=== PATIENT | female | born 1975 | race Caucasian/White ===

== ENCOUNTER → 2016-07-12 | Outpatient (CLI) | payer OTHER ==
[~2016-07-12] MED LIST: GASTROGRAFIN SOLUTION 30ML (Q9963) As Ordered ONE; ISOVUE-370 76% 100ML VIAL (Q9967) As Ordered ONE
--- NOTE | 2016-07-12 17:42 | REP ---
CT abdomen and pelvis 07/12/2016 Indication: Unspecified abdominal pain Comparison: CT of the abdomen and pelvis 06/29/2016 Technique: After drinking two cups of oral contrast each containing 10 mL Gastrografin in 290 mL water, 100 mL Isovue 370 mg/mL was injected intravenously, and 3 mm continuous spiral axial sections were obtained through the abdomen and pelvis Findings: Lung bases are clear bilaterally. Small amount of focal fatty infiltration is seen within the medial segment left lobe of liver adjacent to the falciform ligament. Spleen, pancreas are normal. There has been a prior cholecystectomy; common bile duct is within normal limits given prior cholecystectomy status. The adrenal glands are normal. Kidneys are without hydronephrosis bilaterally or obstructing ureteral calculi. Abdominal aorta is of normal course and caliber. Postsurgical changes are seen within the left upper quadrant consistent with prior gastric bypass procedure. There is no visualized extraluminal contrast or free intraperitoneal air. Bladder is normal. The uterus may contain a small amount of fluid within the endometrial cavity. There is a 3 cm minimally complex left ovarian cyst of density 25 HU. Cyst is decreased in size from prior study when it measured 4.7 cm in diameter and had the appearance of a hemorrhagic cyst. There are a few scattered colonic diverticula. There is no free air or ascites. Impression: 1. There has been interval decrease in size of minimally complex left ovarian cyst, now 3 cm diameter, previously 4.7 cm diameter and hemorrhagic 2. No acute intra-abdominal or pelvic pathology 3. Previous gastric bypass surgery. No free intraperitoneal air or extraluminal air/contrast Signed by Nelly Edge MD 07/15/2016 08:44 P
== END ==
LOC: M RAD 12:19
PROVIDERS: ATTEND Surgery
DX: R10.9 Unspecified abdominal pain (principal); N83.202 Unspecified ovarian cyst, left side; Z98.84 Bariatric surgery status
CPT/HCPCS: 74177; Q9963; Q9967

== ENCOUNTER → 2016-07-19 | Outpatient (CLI) | payer OTHER ==
--- NOTE | 2016-07-19 18:32 | REP ---
Clinical: Follow-up left ovarian cyst . Technique: Transabdominal pelvic ultrasound followed by transvaginal examination for better evaluation of the endometrium and adnexa with color Doppler evaluation of the ovaries. Findings: Bladder is unremarkable and measures approximately 6.9 x 4.6 x 6.4 cm . Heterogeneous anteverted uterus measures 7.7 x 4.1 x 3.9 cm . The endometrial complex measures 10.9 mm thickness. No discrete uterine or endometrial abnormalities are appreciated. The patient is noted to be status post right oophorectomy. Left ovary demonstrates normal vascularity without torsion and measures 3.7 x 3.8 x 2.5 cm with 2.0 cm hemorrhagic cyst decreased in size from prior examination. No pelvic fluid or adnexal mass lesion. . Impression: 1. Hemorrhagic cyst in the left ovary decreased in size compared to prior examination. 2. No pelvic fluid or further acute process. Signed by John Harvey MD 07/19/2016 06:24 P
== END ==
LOC: M RAD 16:43
PROVIDERS: ATTEND Nurse Practitioner Women's Health
DX: D39.12 Neoplasm of uncertain behavior of left ovary (principal); N83.202 Unspecified ovarian cyst, left side

== ENCOUNTER → 2016-07-23 | Outpatient (CLI) | payer OTHER ==
--- NOTE | 2016-07-23 14:12 | REPMRS ---
Patient History The patient states she had a clinical breast exam in July 2016.Family history of unknown cancer in paternal aunt at age 40. Digital Mammo Screening Bilat: July 23, 2016 - Exam #: [id number] Bilateral CC and MLO view(s) were taken. Technologist: Cristal Ortiz, Technologist Prior study comparison: February 25, 2015, bilateral digital mammo screening bilat performed at [facility]. FINDINGS: There are scattered fibroglandular densities. There has been no change in the appearance of the mammogram from the prior studies. There is a mild amount of scattered fibroglandular density which is fairly symmetric. There is no interval development of dominant mass, architectural distortion, or clustered microcalcification suggestive of malignancy. ASSESSMENT: BI-RADS/ACR category 1 mammogram. Negative. Recommendation Routine screening mammogram in 1 year (for women over age 40). This mammogram was interpreted with the aid of an FDA-approved computer-aided dectection system. Electronically Signed By: Harpreet Reyes MD 07/23/16 [id number]
== END ==
LOC: M RAD 12:18
PROVIDERS: ATTEND Nurse Practitioner Women's Health
DX: Z12.31 Encounter for screening mammogram for malignant neoplasm of breast (principal)

== ENCOUNTER → 2016-11-20 | Outpatient (REF) | payer OTHER ==
[2016-11-20 22:35] LABS: CALCIUM OXALATE CRYSTALS MODERATE
== END ==
LOC: M LAB REF 09:17
PROVIDERS: ATTEND Physician Assistant Medical
DX: N39.0 Urinary tract infection, site not specified (principal)

== ENCOUNTER → 2017-02-01 | Outpatient (CLI) | payer OTHER ==
[2017-02-01 09:26] LABS: BASO % 0.7 % (0.0-1.0); EOS # 0.1 K/mm3 (0.0-0.50); EOS % 1.8 % (0.0-3.0); LYMPH # 0.9 K/mm3 (1.5-4.5); LYMPH % 23.8 % (24.0-44.0); MEAN CORPUSCULAR HEMOGLOBIN 31.8 pg (27.0-33.0); MEAN CORPUSCULAR HGB CONC 33.5 g/dl (32.0-36.5); MEAN CORPUSCULAR VOLUME 94.7 fl (80.0-96.0); MONO # 0.3 K/mm3 (0.0-0.8); NEUTROPHILS # 2.4 K/mm3 (1.8-7.7); NEUTROPHILS % 61.5 % (36.0-66.0); RED CELL DISTRIBUTION WIDTH 12.8 % (11.5-14.5); WHITE BLOOD COUNT 3.9 K/mm3 (4.0-10.0)
[2017-02-01 10:14] LABS: ALBUMIN 3.6 GM/DL (3.2-5.2); ALKALINE PHOSPHATASE 78 U/L (45-117); ALT/SGPT 19 U/L (12-78); ANION GAP 11 MEQ/L (8-16); AST/SGOT 13 U/L (15-37); BILIRUBIN,TOTAL 0.5 MG/DL (0.2-1.0); BLOOD UREA NITROGEN 10 MG/DL (7-18); CALCIUM LEVEL 8.5 MG/DL (8.5-10.1); CARBON DIOXIDE LEVEL 25 MEQ/L (21-32); CHLORIDE LEVEL 105 MEQ/L (98-107); CHOLESTEROL LEVEL 121 MG/DL (<200); CREATININE FOR GFR 0.56 MG/DL (0.55-1.02); FREE T4 1.08 NG/DL (0.76-1.46); GLOMERULAR FILTRATION RATE > 60.0 (>58); GLUCOSE, FASTING 88 MG/DL (70-105); POTASSIUM SERUM 3.7 MEQ/L (3.5-5.1); SODIUM LEVEL 141 MEQ/L (136-145); TOTAL PROTEIN 6.6 GM/DL (6.4-8.2); TRIGLYCERIDES LEVEL 64 MG/DL (<150)
== END ==
LOC: M LAB 08:44
PROVIDERS: ATTEND Nurse Practitioner Adult Health
DX: Z98.84 Bariatric surgery status (principal)

== ENCOUNTER → 2017-03-06 | Outpatient (REF) | payer OTHER ==
[2017-03-06 22:20] LABS: CALCIUM OXALATE CRYSTALS LARGE
== END ==
LOC: M LAB REF 19:00
PROVIDERS: ATTEND Physician Assistant Medical
DX: N39.0 Urinary tract infection, site not specified (principal)

== ENCOUNTER → 2017-06-21 | Outpatient (CLI) | payer OTHER ==
[2017-06-21 08:01] LABS: MEAN CORPUSCULAR HEMOGLOBIN 30.6 pg (27.0-33.0); MEAN CORPUSCULAR HGB CONC 32.3 g/dl (32.0-36.5); MEAN CORPUSCULAR VOLUME 94.7 fl (80.0-96.0); PLATELET COUNT, AUTOMATED 287 10^3/uL (150-450); RED CELL DISTRIBUTION WIDTH 12.6 % (11.5-14.5); WHITE BLOOD COUNT 5.1 10^3/uL (4.0-10.0)
[2017-06-21 08:36] LABS: ALBUMIN 3.9 GM/DL (3.2-5.2); ALBUMIN/GLOBULIN RATIO 1.22 (1.00-1.93); ALKALINE PHOSPHATASE 82 U/L (45-117); ALT/SGPT 21 U/L (12-78); ANION GAP 7 MEQ/L (8-16); AST/SGOT 15 U/L (7-37); BILIRUBIN,TOTAL 0.4 MG/DL (0.2-1.0); BLOOD UREA NITROGEN 8 MG/DL (7-18); CALCIUM LEVEL 8.7 MG/DL (8.5-10.1); CARBON DIOXIDE LEVEL 29 MEQ/L (21-32); CHLORIDE LEVEL 107 MEQ/L (98-107); CREATININE FOR GFR 0.62 MG/DL (0.55-1.02); FERRITIN 29 NG/ML (8-252); FREE T4 1.06 NG/DL (0.76-1.46); GLOMERULAR FILTRATION RATE > 60.0 (>58); GLUCOSE, FASTING 75 MG/DL (70-105); PERCENT SATURATION 30.3 % (13.2-45.0); POTASSIUM SERUM 4.4 MEQ/L (3.5-5.1); SODIUM LEVEL 143 MEQ/L (136-145); TOTAL IRON BINDING CAPACITY 254 UG/DL (250-450); TOTAL PROTEIN 7.1 GM/DL (6.4-8.2)
[2017-06-21 11:25] LABS: VITAMIN B12 LEVEL 1339 PG/ML (247-911)
== END ==
LOC: M LAB 06:06
PROVIDERS: ATTEND Registered Nurse
DX: E03.9 Hypothyroidism, unspecified (principal); K91.2 Postsurgical malabsorption, not elsewhere classified

== ENCOUNTER → 2017-06-21 | Outpatient (CLI) | payer OTHER ==
[2017-06-21 08:01] LABS: BASO # 0.1 10^3/uL (0.0-0.2); EOS # 0.1 10^3/uL (0.0-0.50); EOS % 1.4 % (0.0-3.0); IMMATURE GRANULOCYTE % 0.4 % (0-0); LYMPH # 1.1 10^3/uL (1.5-4.5); LYMPH % 21.6 % (24.0-44.0); MEAN CORPUSCULAR HEMOGLOBIN 31.6 pg (27.0-33.0); MEAN CORPUSCULAR HGB CONC 33.2 g/dl (32.0-36.5); MEAN CORPUSCULAR VOLUME 95.2 fl (80.0-96.0); MONO # 0.4 10^3/uL (0.0-0.8); MONO % 8.3 % (0.0-5.0); NEUTROPHILS # 3.3 10^3/uL (1.8-7.7); NEUTROPHILS % 67.3 % (36.0-66.0); PLATELET COUNT, AUTOMATED 277 10^3/uL (150-450); RED CELL DISTRIBUTION WIDTH 12.6 % (11.5-14.5)
[2017-06-21 08:38] LABS: ALBUMIN 3.7 GM/DL (3.2-5.2); ALBUMIN/GLOBULIN RATIO 1.12 (1.00-1.93); ALKALINE PHOSPHATASE 80 U/L (45-117); ALT/SGPT 19 U/L (12-78); ANION GAP 7 MEQ/L (8-16); AST/SGOT 17 U/L (7-37); BILIRUBIN,TOTAL 0.4 MG/DL (0.2-1.0); BLOOD UREA NITROGEN 8 MG/DL (7-18); CALCIUM LEVEL 8.4 MG/DL (8.5-10.1); CARBON DIOXIDE LEVEL 28 MEQ/L (21-32); CHLORIDE LEVEL 107 MEQ/L (98-107); CHOLESTEROL LEVEL 133 MG/DL (<200); CREATININE FOR GFR 0.64 MG/DL (0.55-1.02); FREE T4 1.07 NG/DL (0.76-1.46); GLOMERULAR FILTRATION RATE > 60.0 (>58); GLUCOSE, FASTING 77 MG/DL (70-105); POTASSIUM SERUM 4.5 MEQ/L (3.5-5.1); SODIUM LEVEL 142 MEQ/L (136-145); TRIGLYCERIDES LEVEL 45 MG/DL (<150)
== END ==
LOC: M LAB 06:11
PROVIDERS: ATTEND Nurse Practitioner Adult Health
DX: E55.9 Vitamin D deficiency, unspecified (principal); E03.9 Hypothyroidism, unspecified; Z98.84 Bariatric surgery status; Z79.899 Other long term (current) drug therapy

== ENCOUNTER → 2018-01-17 | Outpatient (CLI) | payer OTHER ==
[2018-01-17 08:10] LABS: BASO % 0.7 % (0.0-1.0); EOS # 0.1 10^3/uL (0.0-0.50); EOS % 1.6 % (0.0-3.0); HEMATOCRIT 42.4 % (36.0-47.0); HEMOGLOBIN 14.1 g/dl (12.0-15.5); IMMATURE GRANULOCYTE % 0.2 % (0-3.0); LYMPH # 1.4 10^3/uL (1.5-4.5); LYMPH % 25.1 % (24.0-44.0); MEAN CORPUSCULAR HGB CONC 33.3 g/dl (32.0-36.5); MEAN CORPUSCULAR VOLUME 96.4 fl (80.0-96.0); MONO # 0.5 10^3/uL (0.0-0.8); MONO % 9.2 % (0.0-5.0); NEUTROPHILS # 3.6 10^3/uL (1.8-7.7); NEUTROPHILS % 63.2 % (36.0-66.0); PLATELET COUNT, AUTOMATED 237 10^3/uL (150-450); RED CELL DISTRIBUTION WIDTH 12.4 % (11.5-14.5); WHITE BLOOD COUNT 5.7 10^3/uL (4.0-10.0)
[2018-01-17 08:28] LABS: ESTIMATED AVERAGE GLUCOSE 105 MG/DL (60-110); HEMOGLOBIN A1c 5.3 %
[2018-01-17 08:58] LABS: ALBUMIN 3.5 GM/DL (3.2-5.2); ALBUMIN/GLOBULIN RATIO 1.09 (1.00-1.93); ALKALINE PHOSPHATASE 69 U/L (45-117); ALT/SGPT 23 U/L (12-78); ANION GAP 7 MEQ/L (8-16); AST/SGOT 14 U/L (7-37); BILIRUBIN,TOTAL 0.6 MG/DL (0.2-1.0); BLOOD UREA NITROGEN 13 MG/DL (7-18); CALCIUM LEVEL 8.1 MG/DL (8.5-10.1); CARBON DIOXIDE LEVEL 28 MEQ/L (21-32); CHLORIDE LEVEL 110 MEQ/L (98-107); CHOLESTEROL LEVEL 133 MG/DL (<200); CHOLESTEROL RISK RATIO 1.821 (<5); CREATININE FOR GFR 0.65 MG/DL (0.55-1.30); FREE T4 0.98 NG/DL (0.76-1.46); GLOMERULAR FILTRATION RATE > 60.0 (>58); GLUCOSE, FASTING 90 MG/DL (70-100); HDL CHOLESTEROL 73 MG/DL (>40); NON-HDL-C 60 MG/DL; POTASSIUM SERUM 4.2 MEQ/L (3.5-5.1); SODIUM LEVEL 145 MEQ/L (136-145); TOTAL PROTEIN 6.7 GM/DL (6.4-8.2); TRIGLYCERIDES LEVEL 45 MG/DL (<150)
[2018-01-17 09:08] LABS: TOTAL 25(OH) VITAMIN D 44.5 NG/ML (30.0-100.0)
== END ==
LOC: M LAB 07:30
DX: E55.9 Vitamin D deficiency, unspecified (principal); Z79.899 Other long term (current) drug therapy; E03.9 Hypothyroidism, unspecified
CPT/HCPCS: 84443

== ENCOUNTER → 2018-10-28 | Outpatient (REF) | payer OTHER | LOC: M LAB REF 18:23 | PROVIDERS: ATTEND Nurse Practitioner Adult Health | DX: M54.5 Low back pain (principal); R19.7 Diarrhea, unspecified ==

== ENCOUNTER → 2018-11-02 | Outpatient (CLI) | payer OTHER ==
[2018-11-02 08:37] LABS: BASO # 0.1 10^3/uL (0.0-0.2); BASO % 0.9 % (0.0-1.0); EOS # 0.1 10^3/uL (0.0-0.50); EOS % 1.1 % (0.0-3.0); HEMATOCRIT 41.5 % (36.0-47.0); HEMOGLOBIN 13.9 g/dl (12.0-15.5); LYMPH # 1.4 10^3/uL (1.5-4.5); LYMPH % 24.3 % (24.0-44.0); MEAN CORPUSCULAR HGB CONC 33.5 g/dl (32.0-36.5); MEAN CORPUSCULAR VOLUME 95.4 fl (80.0-96.0); MONO # 0.5 10^3/uL (0.0-0.8); MONO % 8.3 % (0.0-5.0); NEUTROPHILS # 3.7 10^3/uL (1.8-7.7); PLATELET COUNT, AUTOMATED 248 10^3/uL (150-450); RED BLOOD COUNT 4.35 10^6/uL (4.00-5.40); WHITE BLOOD COUNT 5.7 10^3/uL (4.0-10.0)
[2018-11-02 08:53] LABS: HEMOGLOBIN A1c 5.2 %
[2018-11-02 09:06] LABS: ALT/SGPT 23 U/L (12-78); BILIRUBIN,TOTAL 0.5 MG/DL (0.2-1.0); BLOOD UREA NITROGEN 13 MG/DL (7-18); CALCIUM LEVEL 8.6 MG/DL (8.5-10.1); CARBON DIOXIDE LEVEL 26 MEQ/L (21-32); CHLORIDE LEVEL 108 MEQ/L (98-107); CHOLESTEROL LEVEL 141 MG/DL (<200); CHOLESTEROL RISK RATIO 2.169 (<5); CREATININE FOR GFR 0.66 MG/DL (0.55-1.30); FREE T4 1.01 NG/DL (0.76-1.46); GLOMERULAR FILTRATION RATE > 60.0 (>58); GLUCOSE, FASTING 86 MG/DL (70-100); HDL CHOLESTEROL 65 MG/DL (>40); LDL CHOLESTEROL 61 MG/DL (<100); NON-HDL-C 76 MG/DL; SODIUM LEVEL 141 MEQ/L (136-145); TOTAL PROTEIN 6.9 GM/DL (6.4-8.2); TRIGLYCERIDES LEVEL 74 MG/DL (<150)
[2018-11-03 09:45] LABS: VITAMIN B12 LEVEL 1327 PG/ML (247-911)
== END ==
LOC: M LAB 07:54
PROVIDERS: ATTEND Nurse Practitioner Adult Health
DX: Z51.81 Encounter for therapeutic drug level monitoring (principal); Z79.899 Other long term (current) drug therapy; E03.9 Hypothyroidism, unspecified; Z98.84 Bariatric surgery status; D51.8 Other vitamin B12 deficiency anemias; E55.9 Vitamin D deficiency, unspecified

== ENCOUNTER 2019-01-11 14:22 | Emergency (ER) | payer OTHER ==
[~2019-01-11] VITALS: Ht 165.1 cm; Wt 70.5 kg
[2019-01-11 14:23] VITALS: BP 125/60
[2019-01-11] MEDS ORDERED: OMEP20CA4 PO (14:47)
[2019-01-11] MEDS ORDERED: BIOT1CAP2 PO (14:47)
[2019-01-11] MEDS ORDERED: MULTTAB24 PO (14:47)
[2019-01-11] MEDS ORDERED: D3 +TAB PO (14:47)
[2019-01-11] MEDS ORDERED: LEVO50TA5 PO (14:47)
== END 2019-01-11 15:04 | disposition home or self-care (01) ==
LOC: M ED 14:22
DX: I80.02 Phlebitis and thrombophlebitis of superficial vessels of left lower extremity (principal); Z79.899 Other long term (current) drug therapy; Z88.0 Allergy status to penicillin

== ENCOUNTER → 2019-03-22 | Outpatient (CLI) | payer OTHER ==
[~2019-03-22] MED LIST changes: +BIOT1CAP2 PO; +D3 +TAB PO; -GASTROGRAFIN SOLUTION 30ML (Q9963) As Ordered ONE; -ISOVUE-370 76% 100ML VIAL (Q9967) As Ordered ONE; +LEVO50TA5 PO; +MULTTAB24 PO; +OMEP1CAP73 PO
[2019-03-22 10:17] LABS: BASO # 0.1 10^3/uL (0.0-0.2); EOS # 0.1 10^3/uL (0.0-0.5); EOS % 1.7 % (0.0-3.0); HEMATOCRIT 40.6 % (36.0-47.0); HEMOGLOBIN 13.1 g/dl (12.0-15.5); LYMPH # 1.6 10^3/uL (1.5-5.0); LYMPH % 29.8 % (24.0-44.0); MEAN CORPUSCULAR HEMOGLOBIN 31.7 pg (27.0-33.0); MEAN CORPUSCULAR HGB CONC 32.3 g/dl (32.0-36.5); MEAN CORPUSCULAR VOLUME 98.3 fl (80.0-96.0); MONO # 0.6 10^3/uL (0.0-0.8); MONO % 11.6 % (0.0-5.0); NEUTROPHILS # 2.9 10^3/uL (1.5-8.5); NEUTROPHILS % 55.5 % (36.0-66.0); PLATELET COUNT, AUTOMATED 251 10^3/uL (150-450); RED BLOOD COUNT 4.13 10^6/uL (4.00-5.40); WHITE BLOOD COUNT 5.2 10^3/uL (4.0-10.0)
[2019-03-22 10:34] LABS: HEMOGLOBIN A1c 4.8 %
[2019-03-22 10:36] LABS: ALBUMIN 3.5 GM/DL (3.2-5.2); ALT/SGPT 24 U/L (12-78); BILIRUBIN,TOTAL 0.4 MG/DL (0.2-1.0); BLOOD UREA NITROGEN 8 MG/DL (7-18); CALCIUM LEVEL 8.7 MG/DL (8.5-10.1); CARBON DIOXIDE LEVEL 27 MEQ/L (21-32); CHLORIDE LEVEL 111 MEQ/L (98-107); CHOLESTEROL LEVEL 141 MG/DL (<200); CREATININE FOR GFR 0.67 MG/DL (0.55-1.30); FREE T4 0.88 NG/DL (0.76-1.46); GLOMERULAR FILTRATION RATE > 60.0 (>58); GLUCOSE, FASTING 88 MG/DL (70-100); HDL CHOLESTEROL 75 MG/DL (>40); LDL CHOLESTEROL 56 MG/DL (<100); NON-HDL-C 66 MG/DL; POTASSIUM SERUM 4.5 MEQ/L (3.5-5.1); SODIUM LEVEL 143 MEQ/L (136-145); TOTAL PROTEIN 6.6 GM/DL (6.4-8.2); TRIGLYCERIDES LEVEL 48 MG/DL (<150)
[2019-03-23 10:25] LABS: VITAMIN B12 LEVEL 953 PG/ML (247-911)
== END ==
LOC: M LAB 09:45
PROVIDERS: ATTEND Nurse Practitioner Adult Health
DX: E03.9 Hypothyroidism, unspecified (principal)

== ENCOUNTER → 2020-06-17 | Outpatient (CLI) | payer OTHER ==
--- NOTE | 2020-06-17 09:53 | REPMRS ---
Patient History The patient states she has not had a clinical breast exam in over a year. Family history of unknown cancer at age 40 in paternal aunt. Digital Woman Screen Mammo: June 17, 2020 - Exam #: [id number] Bilateral CC and MLO view(s) were taken. Technologist: Abby Anne, Technologist Prior study comparison: July 23, 2016, bilateral digital mammo screening bilat, performed at [facility]. February 25, 2015, bilateral digital mammo screening bilat, performed at [facility]. FINDINGS: There are scattered fibroglandular densities. The Volpara volumetric breast density category is:B. This is a grouping of fine punctate microcalcifications in the left superior medial central breast which merits further evaluation. There has been no other change in the appearance of the mammogram from the prior studies. There is a mild amount of scattered fibroglandular density which is fairly symmetric. There is noother interval development of dominant mass, architectural distortion, or grouped microcalcification suggestive of malignancy. 3-D tomosynthesis shows no additional findings. Assessment: BI-RADS/ACR category 0 mammogram, Incomplete: Need additional imaging evaluation and/or prior mammograms for comparison. Recommendation Special view mammogram of the left breast. This patient's [facility] Lifetime Breast Cancer Risk is estimated at 9.2 %. This mammogram was interpreted with the aid of an FDA-approved computer-aided dectection system. Electronically Signed By: Harpreet Reyes MD 06/17/20 0953
== END ==
LOC: M WHC 09:04
PROVIDERS: ATTEND Nurse Practitioner Adult Health
DX: R92.8 Other abnormal and inconclusive findings on diagnostic imaging of breast (principal)

== ENCOUNTER → 2020-06-24 | Outpatient (CLI) | payer OTHER ==
--- NOTE | 2020-06-24 08:33 | REP ---
INDICATION: ADDITIONAL VIEWS LT BREAST. RECENT SCREENING STUDY BI-RADS CATEGORY 0 FOR POSSIBLE MICRO CALCIFIC GROUPING. COMPARISON: COMPARISON MAMMOGRAPHY JUNE 17, 2020, JULY 23, 2016, AND FEBRUARY 25, 2015. TECHNIQUE: MAGNIFIED FOCAL SPOT-COMPRESSION CC, ML, AND MLO VIEWS OF THE LEFT BREAST ARE OBTAINED. TRUE ML VIEW WITH 3D TOMOGRAPHY WAS ACQUIRED. This mammogram was interpreted with the aid of an FDA-approved computer-aided detection system. FINDINGS: MAGNIFIED FOCAL SPOT COMPRESSION AND TRUE ML VIEWS OF THE LEFT BREAST CONFIRM THE PRESENCE OF A SMALL GROUPING OF 6-7 TINY POLYMORPHIC MICROCALCIFICATIONS IN THE LEFT SUPERIOR AND MEDIAL QUADRANT MIDDLE 3RD. THESE ARE NEW AND MERIT SUSPICION. ALSO NOTED IS A 2ND SUBAREOLAR GROUPING OF SIMILAR CALCIFICATIONS, 5-6 IN NUMBER, IN THE ANTERIOR 3RD OF THE LEFT BREAST. IMPRESSION: BIRADS/ACR category 4 SUSPICIOUS LEFT BREAST mammographic FINDINGS. HISTOLOGIC SAMPLING IS RECOMMENDED. This patient's Tyrer-Cuzick lifetime breast cancer risk assessment score is 9.2%. RECOMMENDATION: STEREOTACTIC NEEDLE BIOPSY FOR 2 SEPARATE MICRO CALCIFIC GROUPINGS IN THE LEFT BREAST. MARKER CLIP PLACEMENT AND FLOW. CLIP PLACEMENT MAMMOGRAPHY ALSO RECOMMENDED.. The patient letter being requested is M4. <Electronically signed by Harpreet Reyes > 06/24/20 1819
--- NOTE | 2020-06-24 12:01 | REP ---
INDICATION: R09.89 KIM CAROTID BRUIT, RT > LT COMPARISON: None. TECHNIQUE: Real-time ultrasound evaluation and duplex Doppler interrogation of the extracranial carotid vasculature is performed. FINDINGS: Antegrade flow is observed in both vertebral arteries. Right carotid: The right common carotid artery shows diffuse intimal thickening but is otherwise unremarkable. There ismild mixed plaquing in the right carotid bulb and proximal ICA on two-dimensional scanning. Color flow and spectral Doppler interrogation are unremarkable on the right. Velocity chart right carotid: Right CCA PSV: 115 cm/S Right ICA PSV: 118 cm/S Right ICA EDV: 49 cm/S Right ECA PSV: 84 cm/S Right ICA/CCA ratio: 1.02 Left carotid: The left common carotid artery shows diffuse intimal thickening but is otherwise unremarkable. There is mild mixed plaquing in the left carotid bulb and proximal ICA on two-dimensional scanning. Color flow and spectral Doppler interrogation are unremarkable on the left. Velocity chart left carotid: Left CCA PSV: 116 cm/S Left ICA PSV: 139 cm/S Left ICA EDV: 46 cm/S Left ECA PSV: 101 cm/S Left ICA/CCA ratio: 1.19 IMPRESSION: Less than 50% category narrowing in the right internal carotid artery by Doppler velocity criteria. Less than 50% category narrowing in the left ICA by Doppler velocity criteria. <Electronically signed by Harpreet Reyes > 06/24/20 [id number]
== END ==
LOC: M WHC 07:49
PROVIDERS: ATTEND Nurse Practitioner Adult Health
DX: R92.2 Inconclusive mammogram (principal)

== ENCOUNTER → 2020-08-18 | Outpatient (CLI) | payer OTHER ==
[~2020-08-18] MED LIST changes: +ZYRTTAB8 PO
[2020-08-18 15:03] VITALS: BP 116/76
--- NOTE | 2020-08-18 18:39 | REP ---
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 COMPARISON: 07/18/2020. TECHNIQUE: ML and CC views performed following placement of 2 HydroMARK clips. FINDINGS: Two HydroMARK clips are placed adjacent to previously placed biopsy clips, as seen on the prior mammogram, 1 anterolaterally and 1 more posteromedially. The HydroMARK clips are in good position, each are directly adjacent to the previously placed clips. IMPRESSION: Appropriate placement of HydroMARK clips, directly adjacent to previously placed biopsy clips, 1 in the anterolateral left breast and 1 in the posteromedial left breast. RECOMMENDATION: None. <Electronically signed by Mark Alvarze > 08/18/20 [id number]
== END ==
LOC: M WHCPRO 13:44
PROVIDERS: ATTEND Surgery
DX: D05.12 Intraductal carcinoma in situ of left breast (principal)

== ENCOUNTER → 2020-08-30 | Outpatient (CLI) | payer OTHER ==
--- NOTE | 2020-08-30 18:16 | REP ---
INDICATION: ENCOUNTER FOR OTHER PREPROCEDURAL EXAMINATION. COMPARISON: Comparison chest x-ray April 06, 2016. TECHNIQUE: Two views.. FINDINGS: The lungs are well inflated and free of infiltrate. The pleural angles are sharp. The heart size is normal. Pulmonary vasculature is not increased. No significant bony abnormality is seen. IMPRESSION: Negative chest x-ray. <Electronically signed by Harpreet Reyes > 08/30/20 [id number]
== END ==
LOC: M RAD 16:26
PROVIDERS: ATTEND Nurse Practitioner Adult Health
DX: Z01.818 Encounter for other preprocedural examination (principal)

== ENCOUNTER → 2020-09-10 | Outpatient (CLI) | payer OTHER ==
[~2020-09-10] MED LIST changes: +CETI10CH PO; +CYAN500T14 SL; +D31000TA2 PO
== END ==
LOC: M LABSMTC 10:41
PROVIDERS: ATTEND Anesthesiology
DX: Z01.812 Encounter for preprocedural laboratory examination (principal); Z20.822 Contact with and (suspected) exposure to COVID-19

== ENCOUNTER 2020-09-15 07:10 | Day surgery (SDC) | payer OTHER ==
[~2020-09-15] VITALS: Ht 165.1 cm; Wt 70.9 kg
[~2020-09-15 07:10] MED LIST changes: +CLINDAMYCIN 900 MG in IV 1 EA IV ONE; +HEPARIN SOD (PORCINE) 5000UNITS/ML 1ML VIAL/SYRINGE SQ ONE; +LIDOCAINE 1% MDV 20ML VIAL SQ PRN; +LR 1,000 ML IV ONE
[2020-09-15] MEDS ORDERED: ROCURONIUM BROMIDE 50 MG/5 ML VIAL As Ordered ONE (08:07)
[2020-09-15] MEDS ORDERED: ACETAMINOPHEN 1000MG 100ML IV BTL (OFIRMEV) (J0131 PER 10MG) As Ordered ONE (08:07)
[2020-09-15] MEDS ORDERED: HYDROmorphone HCL 2 MG/ML 1ML VIAL (J1170) As Ordered ONE (08:07)
[2020-09-15] MEDS ORDERED: propofoL 200 MG/20 ML VIAL As Ordered ONE (08:07)
[2020-09-15] MEDS ORDERED: SUGAMMADEX SODIUM 500 MG/5 ML VIAL (BRIDION) As Ordered ONE (08:07)
[2020-09-15] MEDS ORDERED: dexameTHASONE 4 MG/ML 1ML VIAL (J1100 PER 1MG) As Ordered ONE (08:07)
[2020-09-15] MEDS ORDERED: LIDOCAINE 2% 100MG/5ML SDV (FOR ANES.) As Ordered ONE (08:07)
[2020-09-15] MEDS ORDERED: ONDANSETRON 4MG/2ML VIAL As Ordered ONE (08:07)
[2020-09-15] MEDS ORDERED: MIDAZOLAM INJ 2MG/2ML VIAL (J2250 PER 1MG) As Ordered ONE (08:08)
[2020-09-15] MEDS ORDERED: fentaNYL 100 MCG/2 ML INJECTION (J3010) As Ordered ONE (08:08)
[2020-09-15] MEDS ORDERED: BUPIVACAINE LIPOSOME/PF 1.3% 20ML VIAL (13.3MG/ML)(EXPAREL)(C9290 PER1MG) As Ordered ONE (08:58)
[2020-09-15] MEDS ORDERED: BACITRACIN PWD 50,000 UNITS VIAL As Ordered ONE (08:58)
[2020-09-15] MEDS ORDERED: SCOPOLAMINE 1MG TRANSDERMAL PATCH TOP ONE (09:00)
[2020-09-15] MEDS ORDERED: PHENYLEPHRINE 10MG/ML 1ML VIAL (J2370 PER 1) As Ordered ONE (10:18)
[2020-09-15] MEDS ORDERED: GLYCOPYRROLATE INJ 0.2 MG/ML 2 ML VIAL As Ordered ONE (10:27)
--- NOTE | 2020-09-15 11:43 | REP ---
INDICATION: LEFT BREAST LUMPECTOMY X2, SENTINEL NODE BIOPSY X2. COMPARISON: Mammogram 08/18/2020. TECHNIQUE: Ultrasound guidance provided for Dr. Hernandez for Kopan's wire placement at 2 locations, marked by HydroMARK clips. FINDINGS: Ultrasound guidance provided for Dr. Hernandez for Kopan's wire placement at 2 locations, marked by HydroMARK clips. IMPRESSION: As above. <Electronically signed by Mark Alvarez > 09/15/20 1144
--- NOTE | 2020-09-15 12:14 | POST-OPPD ---
Postoperative Procedure Note Date Of Procedure: Sep 15, 2020 PREOPERATIVE DIAGNOSIS: Left breast acquired deformity s/p double lumpectomy. POSTOPERATIVE DIAGNOSIS: same FINDINGS: Large defect upper and lateral breast s/p two lumpectomies PROCEDURE: Left breast immediate oncoplastic closure via mastopexy approach. SURGEON: Dr Conner COURT RECORDING MONITOR: Dr Hernandez ANESTHESIA: General SPECIMENS: none ESTIMATED BLOOD LOSS: 50 cc REPLACED: none DRAINS: 15 Fr round COMPLICATIONS: none POSTOPERATIVE CONDITION: stable LEIGH ANN CONNER DO Sep 15, 2020 12:14
--- NOTE | 2020-09-15 12:14 | ROOPDOC ---
[facility] Report Of Operation Report of Operation DATE OF PROCEDURE: 09/15/20 PREOPERATIVE DIAGNOSIS: Left breast acquired deformity s/p double lumpectomy. POSTOPERATIVE DIAGNOSIS: same FINDINGS: Large defect upper and lateral breast s/p two lumpectomies PROCEDURE: Left breast immediate oncoplastic closure via mastopexy approach. SURGEON: Dr Conner THERMOSTAT MECHANIC: Dr Hernandez ANESTHESIA: General SPECIMENS: none ESTIMATED BLOOD LOSS: 50 cc REPLACED: none DRAINS: 15 Fr round COMPLICATIONS: none POSTOPERATIVE CONDITION: stable DESCRIPTION OF PROCEDURE: This is a 45-year-old female who presents to our office for evaluation for oncoplastic construction left breast. Patient is planned to have 2 lumpectomies on the left breast 1 superior medial part of the breast and inferior lateral part of the breast. Her measurements are from sternal notch to the nipple areolar complex 25 cm on the left and 27 cm on the right. Her inframammary fold (IMF) is at 23 cm. Oncoplastic reconstruction done at the time of lumpectomy with the use of mastopexy approach and possible free nipple graft was discussed with the patient in detail. Risks, benefits, and alternatives were discussed with the patient in detail, and she is ready to proceed. The day of surgery, she was marked in the upright position. Preoperative antibiotics given. Informed consent obtained. She was brought into the operating room and placed in supine position. General anesthesia was induced. She was prepped and draped in the usual sterile fashion. At the beginning of combination procedure I have outlined Nipple areolar complex at 42 mm in diameter. Then a lollypop incision was designed, and incision was carried out, tissue was scored. This approach allowed Dr. Hernandez to carry out her part of the procedure. Lumpectomy procedures are dictated separately by Dr. Hernandez. After lumpectomy part was completed, I have reexamined the remaining tissue and central pedicle was created and additional undermining was done to carry out the mastopexy approach. Nipple areolar complex was reexamined and it is completely viable. We undermined superiorly until the pectoralis muscle was identified and our pocket to be able to bring the tissue superiorly, and then the lateral pillars were also freed up, and the central pedicle was identified with good perfusion to the nipple at all times. The skin was de-epithelialized, and the whole breast moved superiorly to its new location at 23 cm from the sternal notch. Exparel 6 cc was infiltrated in the breast tissue and Pectoralis muscle by Dr Hernandez. She also helped in assuring careful hemostasis and patency of the marker clips which were placed for further identification of the lumpectomy sites. Pillars were then closed with 3-0 Monocryl sutures, and 0 Vicryl conforming sutures were used to support the breast. Excess tissue inferiorly was measured and resected, and nipple areolar complex sutured in with 3-0 and 4-0 Monocryl and a 5-0 plain gut interrupted stitch. The vertical limb is 7 cm. Prineo dressing applied to horizontal and vertical scar. Xeroform on the nipple areolar incision applied. Surgical support bra, and patient was extubated in the operating room without any difficulty and transferred to the recovery room in stable condition. LEIGH ANN CONNER DO Sep 15, 2020 12:14
[2020-09-15] MEDS ORDERED: ULTR50TA8 PO (12:20)
[2020-09-15] MEDS ORDERED: METOCLOPRAMIDE INJ 10MG/2ML VIAL (J2765 PER 1) IV PRN (12:40)
[2020-09-15] MEDS ORDERED: fentaNYL 100 MCG/2 ML INJECTION (J3010) IV PRN (12:40)
[2020-09-15] MEDS ORDERED: oxyCODONE 5MG TAB PO PRN (12:40)
[2020-09-15] MEDS ORDERED: HYDROMORPHONE HCL 0.5 MG/ 0.5 ML SYRINGE (J1170 PER 1) IV PRN (12:40)
[2020-09-15] MEDS ORDERED: LR 1,000 ML IV SCH (12:40)
[2020-09-15] MEDS ORDERED: ONDANSETRON 4MG/2ML VIAL IV PRN (12:40)
--- NOTE | 2020-09-15 12:44 | REP ---
INDICATION: LEFT BREAST LUMPECTOMY X2,SENTINEL NODE BIOPSY X2. COMPARISON: 08/18/2020. TECHNIQUE: Radiographs are obtained of 2 sets of specimens. FINDINGS: Radiographs of the specimen from the 9 o'clock position of the left breast show a marking clip centrally within the soft tissue specimen and a marking clip on the tray outside of the specimen. Localizing wire is seen in the specimen. There is also a punctate calcification in the specimen. Radiographs of the specimen from the 4 o'clock position of the left breast show 2 marking clips approximately 7 mm from the margin of the specimen. A localizing needle and wire are seen in the specimen. No calcifications are seen in the specimen. IMPRESSION: Specimen radiographs as above. RECOMMENDATION: Clinical follow-up. <Electronically signed by Mark Alvarez > 09/15/20 [id number]
[2020-09-15 13:40] VITALS: BP 113/57
--- NOTE | 2020-09-15 21:45 | ROOPDOC ---
[facility] Report Of Operation Report of Operation DATE OF PROCEDURE: 09/15/20 PREPROCEDURE DIAGNOSES: left breast cancer multifocal POSTPROCEDURE DIAGNOSES: same PROCEDURE: Left breast lumpectomy x 2 with intraop wire placement x 2 and oncoplastic closure SURGEON: Dr Lyndsay Hernandez GAS LEAK TESTER: Dr Mickey Trujillo ANESTHESIA: general ESTIMATED BLOOD LOSS: Approximately 50 mL. COMPLICATIONS: none REMARKS: all 4 clips identified DESCRIPTION OF PROCEDURE: INDICATIONS: Ms. Leonie Cai is a 45-year-old woman who was found to have 2 clusters of suspicious calcifications in 2 different quadrants in the left breast on mammography. This was evaluated with left breast stereotactic biopsies of both clusters of calcifications at the OSH. 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 Nonsonographically visible Hydromark clips were placed. This was followed by placement of 2 sononographically visible clips was done to allow localization of the lesions. Patient opted for breast conservative surgery. Due to the fact that 2 separate lumpectomies had to be done, oncoplastic closure of the breast was planned and she was evaluated by Dr Trujillo from plastic surgery. She was medically cleared for surgery by her primary care doctor. Risks and possible complications of surgical procedure including bleeding, infection and injury to surrounding structures, including possible nipple necrosis, were explained to the patient and she wished to proceed. Consent was signed. My initials were placed on the operative site. Subcutaneous injection of 5000 units of heparin was done. Dr. Trujillo marked patient preoperatively. DETAILS: Patient was taken to the operating room and placed on the operating room table. A sign in was called stating patients name, date of and the procedure to be done. Preoperative antibiotics were infused. Smooth induction of general anesthesia was done. Patients hands were extended on arm rests. Care was taken not to over extend the arms. Pillow was placed under the knees and a foam was placed under the heels. Sequential compression devices were placed and assured to function correctly. Procedure was started with left breast intraop wire localization at two locations of the clips. Appropriate time out was done and patients name, date of , and the procedure to be done were confirmed. Left breast was cleaned by me. Intraoperative ultrasound was used to confirm location of the Hydromark clips at 9:00 and at 4:00. Location of the clips was marked on the skin as well. Procedure was started with targeting the 9:00 hydromark. 21 G Kopans Breast Lesion Localization Needle was used to place 25 cm wire through the clip. The wire tip was passed a centimeter deep to the clip. The images were captured confirming adequate placement of the localizing wire. Forest And Conservation Worker assisted with the wire placement. Next, our attention was turned toward 4:00 hydromark. 21 G Kopans Breast Lesion Localization Needle was used to place 25 cm wire through the clip. The wire tip was passed a centimeter deep to the clip. The images were captured confirming adequate placement of the localizing wire. Forest And Conservation Worker assisted with the wire placement. Next, patients left breast and axilla were prepped and draped in the usual fashion. Care was taken not to displace the wires. Appropriate time out was done again prior second part of the procedure. Patients name, date of , and the procedure to be done were confirmed. Incision was made by Dr Trujillo along previously marked sites in a Ovalle Pattern fashion to allow access to the breast parenchyma. Procedure was started with left 9:00 location. Subcutaneous skin flaps were raised. Dissection was carries along the wire until the previously marked on the skin area of target clip location was encountered. At this point, wider excision of the tissue surrounding the wire was done. The Hydromark clip was identified in the tissue with intraoperative hockey stick ultrasound probe. The other clip was not visible on sonography. The end of the wire was identified with palpation. Upon dissection of superior margin a nonsonographically visible metal clip was noted and placed on the grid for later evaluation. The lumpectomy specimen was carefully removed from the breast keeping its proper orientation and moved to the back table where margins were marked with the surgical inking kit following the standard colors recommendations. Specimen was then placed on the grid and placed in [employer] [facility] System. The image revealed the wire, and the Hydromark in the specimen. The nonsonographic clip was also seen next to the superior aspect of the specimen. The specimen was labeled with patients name and left 9:00 lumpectomy and sent to pathology. Next, an additional superior margin was taken since the nonsonographic clip was noted at the superior edge of the specimen. Other margins appeared adequately away from the clips. The new/ true superior margin, defined as margin farthest away from lumpectomy cavity, was marked with black ink. The margin was sent as a separate specimen with appropriate labeling. Wound was thoroughly irrigated. Adequate hemostasis was assured. Dr Herrera assistance was critical in the assuring adequate hemostasis. Local anesthetic was injected into surrounding tissues. Clips were placed to macy the cavity. At this point our attention was turned toward the 4:00 location located immediately in the subareolar area. Dr. Trujillo again performed incision immediately adjacent to the lateral aspect of the nipple paying attention to preserve blood supply to the nipple. A Hydromark clip was identified immediately adjacent to the dermis. The other clip was not visible on sonography. The end of the wire was identified with palpation. The dissection was carried along the wire which was passed distal to the clip. The lumpectomy specimen was carefully removed from the breast keeping its proper orientation and moved to the back table where margins were marked with the surgical inking kit following the standard colors recommendations except that the superior margin was marked with yellow ink and medial margin was marked with the red ink. Specimen was then placed on the grid and placed in [employer] [facility]imen [facility] System. The image revealed the wire, the Hydromark and the nonsonographically visible clip in the specimen. The specimen was labeled with patients name and left 4:00 lumpectomy and sent to pathology. Next, an additional superior margin was taken since the superior margin appeared close to the clips. Other margins appeared adequately away from the clips. The new/ true superior margin, defined as margin farthest away from lumpectomy cavity, was marked with black ink. The margin was sent as a separate specimen with appropriate labeling. Wound was thoroughly irrigated. Adequate hemostasis was assured. Dr Herrera assistance was critical in the assuring adequate hemostasis. Local anesthetic was injected into surrounding tissues. Clips were placed to macy the cavity. spaces at each lumpectomy cavity was approximated with Vicryl stitches. Dr. Trujillo performed oncoplastic closure of the left breast using ovalle pattern incision. Please refer to Dr. Herrera procedure note for details. I stayed scru bbed through entire procedure and assisted Dr Trujillo to allow fast progression of the case. 15 [place] Saleem drain was placed in the wound and secured with stitches. The dermis was closed with 3-0 Monocryl and skin was closed with 4-0 Monocryl. Surgical glue and Prineo dressing were uses to close the wound. Patient emerged from the anesthesia without any problems. Fluffs were placed over the operative site and surgical bra was placed. Sponge and instrument counts were done and were correct. Patient tolerated procedure well and was taken to recovery unit in stable condition. LEONA HERNANDEZ. DO Sep 15, 2020 21:45
== END 2020-09-15 13:55 | disposition home or self-care (01) ==
LOC: M SDC 07:10
PROVIDERS: ATTEND Surgery
DX: D05.12 Intraductal carcinoma in situ of left breast (principal); Z17.0 Estrogen receptor positive status [ER+]; E03.9 Hypothyroidism, unspecified; K21.9 Gastro-esophageal reflux disease without esophagitis; Z98.84 Bariatric surgery status; Z88.0 Allergy status to penicillin; Z79.899 Other long term (current) drug therapy
CPT/HCPCS: 19125; 19126; 19316; 36415; 76942; 81025; 86850; 86900; 86901; 88305; 88307; C9290; J0131; J1100; J1170; J1644; J2250; J2370; J2405; J3010

== ENCOUNTER → 2020-09-23 | Outpatient (CLI) | payer OTHER ==
[~2020-09-23] MED LIST changes: -CLINDAMYCIN 900 MG in IV 1 EA IV ONE; -HEPARIN SOD (PORCINE) 5000UNITS/ML 1ML VIAL/SYRINGE SQ ONE; -LIDOCAINE 1% MDV 20ML VIAL SQ PRN; -LR 1,000 ML IV ONE; +ULTR50TA8 PO
== END ==
LOC: M LABSMTC 11:32
PROVIDERS: ATTEND Anesthesiology
DX: Z01.812 Encounter for preprocedural laboratory examination (principal)

== ENCOUNTER 2020-09-27 10:36 | Day surgery (SDC) | payer OTHER ==
[~2020-09-27] VITALS: Ht 165.1 cm; Wt 72.6 kg
[~2020-09-27 10:36] MED LIST changes: +CLINDAMYCIN 900 MG in IV 1 EA IV ONE; +CYAN500T14 PO; -CYAN500T14 SL; +HEPARIN SOD (PORCINE) 5000UNITS/ML 1ML VIAL/SYRINGE SQ ONE; +LR 1,000 ML IV ONE
[2020-09-27] MEDS ORDERED: BUPIVACAINE HCL 0.25% 30ML VIAL As Ordered ONE (12:21)
[2020-09-27] MEDS ORDERED: LIDOCAINE 1% SDV 30ML VIAL As Ordered ONE (12:21)
[2020-09-27] MEDS ORDERED: ONDANSETRON 4MG/2ML VIAL As Ordered ONE (12:58)
[2020-09-27] MEDS ORDERED: METOCLOPRAMIDE INJ 10MG/2ML VIAL (J2765 PER 1) As Ordered ONE (12:58)
[2020-09-27] MEDS ORDERED: MIDAZOLAM INJ 2MG/2ML VIAL (J2250 PER 1MG) As Ordered ONE (12:58)
[2020-09-27] MEDS ORDERED: propofoL 200 MG/20 ML VIAL As Ordered ONE (12:58)
[2020-09-27] MEDS ORDERED: dexameTHASONE 4 MG/ML 1ML VIAL (J1100 PER 1MG) As Ordered ONE (12:58)
[2020-09-27] MEDS ORDERED: fentaNYL 100 MCG/2 ML INJECTION (J3010) As Ordered ONE ×3 (12:58→15:49)
[2020-09-27] MEDS ORDERED: ROCURONIUM BROMIDE 50 MG/5 ML VIAL As Ordered ONE (12:59)
[2020-09-27] MEDS ORDERED: ACETAMINOPHEN 1000MG 100ML IV BTL (OFIRMEV) (J0131 PER 10MG) As Ordered ONE (12:59)
[2020-09-27] MEDS ORDERED: SUGAMMADEX SODIUM 500 MG/5 ML VIAL (BRIDION) As Ordered ONE (13:19)
[2020-09-27] MEDS ORDERED: ROXI1TAB2 PO (15:35)
[2020-09-27 16:20] VITALS: BP 109/56
--- NOTE | 2020-09-28 10:56 | REP ---
INDICATION: LEFT BREAST CANCER. COMPARISON: Comparison is made with specimen radiography from the left breast September 15, 2020. Comparison radiographs July 12 2020, July 18, 2020, and August 18, 2020.. TECHNIQUE: Ten views including photograph the period FINDINGS: There are total of 3 specimens labeled as follows: Left breast 9 o'clock, left breast 4 o'clock superior, and left breast 4 o'clock medial. The specimen labeled 9 o'clock contains no notable features. No clips, wires, masses, or visible microcalcifications. The specimen labeled left breast 4 o'clock superior contains a centrally placed surgical clip and a punctate microcalcification. The specimen labeled 4 o'clock left breast medial also contains a surgical clip. There are 2 or 3 microcalcifications adjacent to the surgical clip in the specimen. IMPRESSION: Specimen radiographic findings as above. <Electronically signed by Harpreet Reyes > 09/28/20 [id number]
[2020-09-30] MEDS ORDERED: TAMO20TA8 PO (11:46)
--- NOTE | 2020-10-02 17:49 | ROOPDOC ---
[facility] Report Of Operation Report of Operation DATE OF PROCEDURE: 09/27/20 PREPROCEDURE DIAGNOSES: Multifocal Left breast cancer, s/p 2 lumpectomies with close margins POSTPROCEDURE DIAGNOSES: Multifocal Left breast cancer, s/p 2 lumpectomies with close margins PROCEDURE: Left breast reexcision of lateral margin from 9:00 lumpectomy site, and superior and medial margin from the 4:00 lumpectomy site SURGEON: Dr Leona Hernandze SOUND INSTALLATION WORKER: Dr. Kristin Trujillo ANESTHESIA: gen ESTIMATED BLOOD LOSS: minimal COMPLICATIONS: none REMARKS: new true new margins are marked with ink, a few puncture calcs were identified in the 4:00 specimens DESCRIPTION OF PROCEDURE: INDICATIONS: Ms. Leonie Cai is a 45-year-old woman who was found to have 2 clusters of suspicious calcifications in 2 different quadrants in the left breast on mammography. This was evaluated with left breast stereotactic biopsies of both clusters of calcifications at the OSH. 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 Nonsonographically visible Hydromark clips were placed. This was followed by placement of 2 sononographically visible clips was done to allow localization of the lesions. Patient opted for breast conservative surgery. Due to the fact that 2 separate lumpectomies had to be done, oncoplastic closure of the breast was planned and she was evaluated by Dr Trujillo from plastic surgery. She underwent Left breast lumpectomy x2 with intraop wire placement x 2 and oncoplastic closure on 09/15/20. Margins were negative but some margins were close. One additional cluster of DCIS was found in the additional 4:00 superior margin. Reexcision of the close margins was offered to the patient vs mastectomy. Patient wished to proceed with margin reexcision at this time. Risks and possible complications of surgical procedure including bleeding, infection and injury to surrounding structures, including nipple necrosis, were explained to the patient and she wished to proceed. Consent was signed. My initials were placed on the operative site. Subcutaneous injection of 5000 units of heparin was done. DETAILS: Patient was taken to the operating room and placed on the operating room table. A sign in was called stating patients name, date of and the procedure to be done. Preoperative antibiotics were infused. Smooth induction of general anesthesia was done. Patients hands were extended on arm rests. Care was taken not to over extend the arms. Pillow was placed under the knees and a foam was placed under the heels. Sequential compression devices were placed and assured to function correctly. The procedure was started with opening the previous left periareolar incision. This was done with scalpel. Initially medial aspect of the incision was opened to access 9:00 lumpectomy site. Blunt dissection was carried toward the seroma cavity which was identified with intraop ultrasound. Seroma fluid was evacuated upon entering the cavity. Previously placed 2-0 Viclyl dyed sutures closing the lumpectomy cavity were identified and removed. Cavity margins were assessed and the lateral margin-closest to the nipple was identified. The clip marking the ma rgin was non seen and it was not palpable either. Allis clamps were used to grab the lateral margin tissue and a sharp dissection of tissue with 1 cm depth was done along entire lateral aspect of the lumpectomy cavity. Specimen was carefully moved to the back table and marked with the surgical inking kit following the standard colors recommendations with the exception that the margin closes to the lumpectomy site (false margin) was left uninked. Specimen was then placed on the grid and placed in [employer]. The image revealed no obvious calcifications. The specimen was labeled with patients name and right 9:00 lumpectomy lateral margin and sent to pathology. The cavity was irrigated and adequate hemostasis was assured. Local anesthetic was injected into the surrounding tissues. A new clip was placed at the remaining tissue marking new lateral lumpectomy margin. 2-0 Vicryl was used to approximate the lumpectomy cavity and close the space. At this time my attention was turned toward the 4:00 periareolar lumpectomy site. I opened the previous periareolar incision at the lateral aspect, keeping the superior and inferior portion of incision intact. Blunt dissection was carried toward the seroma cavity which was identified with intraop ultrasound. Seroma fluid was evacuated upon entering the cavity. Previously placed 2-0 Viclyl dyed sutures closing the lumpectomy cavity were identified and removed. Cavity margins were assessed and the superior and medial margins were identified. Clips marking the site of the margins were identified in each margin. Allis clamps were used to grab the superior margin tissue and a sharp dissection of tissue with 1 cm depth was done along entire superior aspect of the lumpectomy cavity. Specimen was carefully moved to the back table and marked with the surgical inking kit following the standard colors recommendations with the exception that the margin closes to the lumpectomy site (false margin) was left uninked. Specimen was then placed on the grid and placed in [employer]. The image revealed few punctate calcifications. The specimen was labeled with patients name and right 4:00 lumpectomy superior margin and sent to pathology. A new clip was placed into the remaining tissues at the superior aspect of the lumpectomy cavity. Next, Allis clamps were used to grab the medial margin tissue and a sharp dissection of tissue was carried. This tissue was centrally under the nipple. Less that 1 cm depth of the tissue was taken as there was concern about the blood flow to the nipple. Specimen was carefully moved to the back table and marked with the surgical inking kit following the standard colors recommendations with the exception that the margin closes to the lumpectomy site (false margin) was left uninked. Specimen was then placed on the grid and placed in [employer] [facility]. The image revealed few punctate calcifications. The specimen was labeled with patients name and right 4:00 lumpectomy medial margin and sent to path ology. A new clip was placed into the remaining tissues at the medial aspect of the lumpectomy cavity. Next, the wound was irrigated thoroughly and adequate hemostasis was assured. Local anesthetic was injected into surrounding tissues. space was ap proximated with 2-[address] Trujillo scrubbed in for this part of the procedure to help rearrange tissue and assist with complex closure. The dermis of the medial and lateral periareolar incisions was closed with 3-0 Vicryl and skin was closed with 4-0 Monocryl. The areola was suture with 5-0 Plain suture in the interrupted fashion. Xeroform was placed over the incision and covered with gauze with centrally cut donut hole for the nipple. Surgical bra was then placed. Sponge and instrument counts were done and were correct. Patient tolerated procedure well and was taken to recovery unit in stable condition. LEONA HERNANDEZ DO Oct 02, 2020 17:49
== END 2020-09-27 16:38 | disposition home or self-care (01) ==
LOC: M SDC 10:36
PROVIDERS: ATTEND Surgery
DX: D05.12 Intraductal carcinoma in situ of left breast (principal); Z17.0 Estrogen receptor positive status [ER+]; Z88.0 Allergy status to penicillin; Z87.891 Personal history of nicotine dependence; E03.9 Hypothyroidism, unspecified; E80.3 Defects of catalase and peroxidase; Z98.84 Bariatric surgery status; K21.9 Gastro-esophageal reflux disease without esophagitis; Z79.899 Other long term (current) drug therapy
CPT/HCPCS: 19125; 19126; 36415; 81025; 86850; 86900; 86901; 88305; J0131; J1100; J1644; J2250; J2405; J2765; J3010

== ENCOUNTER → 2020-10-18 | Outpatient (CLI) | payer OTHER ==
[~2020-10-18] MED LIST changes: -CLINDAMYCIN 900 MG in IV 1 EA IV ONE; -HEPARIN SOD (PORCINE) 5000UNITS/ML 1ML VIAL/SYRINGE SQ ONE; -LR 1,000 ML IV ONE; +ROXI1TAB2 PO; +TAMO20TA8 PO
--- NOTE | 2020-10-18 12:53 | RADONC.CN ---
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 Hernandez on 09/15/20 and margin-directed re- excision on 09/27/20. She is seen today for consideration of adjuvant RT. Diagnosis/Treatment History Oncologic History 06/17/20 Mammogram with microcalcifications in the left central breast. 06/24/20 Diagnostic mammogram with multifocal microcalcifications left breast @ 4:30 and 9:30 07/12/20 Biopsy of 9:30 lesion with DCIS grade 2 ER/MI+ 07/18/20 Biopsy of 4:30 lesion showing DCIS grade 1 07/18/20 MRI negative for regional disease or additional lesions 09/15/20 Lumpectomy showin pTisNX grade 3 ER/MI+, margins close 09/27/20 Margin directed re-excision, margins negative Pathology review at tumor board on 10/12/20 concluded that this is not multicentric disease, rather most likely the lesions are connected and this is a unifocal process, thus she is eligible for breast conserving therapy and resection margins as noted are adequate. Breast history: 1st @ 17 Menses @ 12 Premenopausal No OCP or HRT LMP September 2020 Interval History Leonie feels well. She has periareolar numbness as her only post-surgical side effect. She has full ROM in the LUE. No pain. She has preserved appetite and stable weight. She sought a second opinion in [place] for adjuvant therapy but desires treatment here closer to home. Past Medical History: GERD DVT LLE 2019 Hypothyroid Past Surgical History: Gastric bypass 2016 Carpal tunnel release Right oophorectomy 2004 Cholecystectomy Family History: Aunt cancer (unknown type) Maternal and paternal grandmothers breast Social History: 10 pack year former smoker Drinks 1-2 alcoholic beverages weekly Allergies / Meds Allergies: Coded Allergies: Penicillins (Verified Allergy, Mild, HIVES, 09/23/20) Home Meds Active Scripts Tamoxifen Citrate (Tamoxifen Citrate) 20 Mg Tablet, 1 TAB PO DAILY for 30 Days, #60 TAB 1 Refill Prov:AKUA ORELLANA MD 09/30/20 Oxycodone HCl (Roxicodone) 5 Mg Tablet, 5 MG PO Q4-6HP PRN for pain MDD 4 Tab let(s) for 3 Days, #10 TAB Prov:LEONA HERNANDEZ DO 09/27/20 Reported Medications Cyanocobalamin (Vitamin B-12) (Vitamin B-12) 500 Mcg Tablet, 1 TAB PO DAILY, TAB 09/08/20 Cetirizine HCl (Cetirizine HCl) 10 Mg Tab.chew, 10 MG PO DAILY, CHW 09/08/20 Cholecalciferol (Vitamin D3) (Vitamin D3) 1,000 Unit Tablet, 2000 UNITS PO DAILY, TAB 09/08/20 Biotin (Biotin) 1 Mg Capsule, 1 CAP PO DAILY for 30 Days, #30 CAP 01/11/19 Mv,Calcium,Min/Iron/Folic/Vitk (Multi For Her Tablet) 1 Each Tablet, 1 TAB PO DAILY, TAB 01/11/19 Levothyroxine Sodium (LEVOTHYROXINE SODIUM) 50 Mcg Tablet, 50 MCG PO DAILY for 30 Days, #30 TAB 01/11/19 Discontinued Reported Medications Omeprazole (Omeprazole) 20 Mg Capsule.dr, 20 MG PO DAILY, CAP 01/11/19 Review of Systems General: Reports: Normal Appetite Constitutional: Denies: Chills, Fever, Night Sweats Eyes: Denies: Pain, Vision change HEENT: Denies: Head Aches, Dysphagia, Sore Throat Skin: Denies: Rash, Lesions, Bruising Pulmonary: Denies: Dyspnea, Cough Cardiovascular: Denies: Chest Pain, Palpitations, Edema Gastrointestinal: Denies: Nausea, Vomiting, Abdominal Pain, Diarrhea Genitourinary: Denies: Dysuria, Frequency, Incontinence Hematologic: Denies: Bruising, Petecchia, Enlarged Lymph Nodes Musculoskeletal: Denies: Neck pain, Back pain Neurological: Denies: Weakness, Numbness, Incoordination Psych: Reports: Mood Normal; Denies: Memory Issues, Thoughts of Self Harm Vital Signs Ht 65" Wt 165 lbs BMI 27 T 98 P 78 RR 16 BP 120/66 O2 99% Pain 0 Fatigue 0 General Exam: Positive: Alert, Cooperative, No Acute Distress Eye Exam: Positive: PERRLA, EOMI ENT EXAM: Positive: Mucous membr. moist/pink, Pharynx Normal Neck Exam: Negative: Supple, JVD, Thyromegaly, +2 carotid pulse wo bruit, Lymphadenopathy, Other Chest Exam: Positive: Normal air movement; Negative: Rales, Rhonchi, Wheezing Heart Exam: Positive: Rate Normal, Regular Rhythm Breast Exam: Positive: Symmetric Bilaterally (Ptotic), Skin Changes (Left periareolar incisions well-healed palpable retroareolar and medial central breast surgical sites); Negative: Lumps or Masses, Nipple Retraction Abdomen Exam: Positive: Soft; Negative: Tenderness, Mass Extremity Exam: Negative: Edema, Tenderness Skin Exam: Positive: Nl turgor and temperature; Negative: Rash Neuro Exam: Positive: Normal Gait, Normal Speech, Cranial Nerves 3-12 NL Psych Exam: Positive: Mental status NL, Mood NL, Memory Intact Diagnostic and Laboratory Diagnostic Review Radiologic images, relevant labs and pathology reports were personally reviewed and discussed with Ms. Cai. Assessment and Plan Impression Ms. 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 Hernandez on 09/15/20 and margin-directed re-excision on 09/27/20. She is seen today for consideration of adjuvant RT. Stage Stage 0 left breast DCIS pTisNX ER/MI+ HER2- Grade 3 Performance Status ECOG 0 Plan We had an extensive discussion with Ms. Cai regarding the diagnosis at hand and available therapeutic options. She has received adequate surgical excision for this DCIS which upon review at our tumor board on 10/12/20 was deemed unifocal. The operative bed on palpation today is not prohibitively large. She would be appropriate for whole breast RT 40 Gy in 15 fractions with a 10 Gy in 5 fraction tumor bed boost. There is a recently presented phase III trial which supports the use of boost for increased local control in DCIS (Anna et al 2020). Because this is a left-sided process I would attempt prone treatment to spare heart and lung dose given her age. If this position is not tolerable, then we can do DIBH. We discussed the logistics of receiving radiation therapy in detail including the need for a 1-time planning session. This can occur in the next week or so. We reviewed the side effects of treatment including fatigue, skin reaction, fibrosis and late cardiac toxicity which we will attempt to mitigate as described above. After discussing the risks, benefits and alternatives to radiation therapy, Ms. Cai was amenable to pursuing radiotherapy. All questions were answered to the patient's satisfaction. We instructed the patient that if there were any questions,concerns or changes in clinical status in the interim to contact us. Recommendations 40 Gy in 15 fractions to the left whole breast + 10 Gy in 5 fraction tumor bed boost Simulation in the coming week History of LE DVT may alter choice of endocrine therapy, defer to medical oncology Billing Statement Total time of [42] minutes was spent preparing for the visit [2], obtaining HPI [4], examining the patient [4], reviewing diagnostic tests [3], discussing management options [20], coordinating care [1], and writing this note [8]. LOLA SARAH MD Oct 18, 2020 12:53
== END ==
LOC: M ONCR 09:55
PROVIDERS: ATTEND General Practice
DX: C50.912 Malignant neoplasm of unspecified site of left female breast (principal)

== ENCOUNTER → 2020-11-17 | Outpatient (CLI) | payer OTHER | LOC: M LABSMTC 10:37 | PROVIDERS: ATTEND Anesthesiology | DX: Z01.812 Encounter for preprocedural laboratory examination (principal); Z20.822 Contact with and (suspected) exposure to COVID-19 ==

== ENCOUNTER 2020-11-22 06:45 | Observation (INO) | payer OTHER ==
[~2020-11-22] VITALS: Ht 165.1 cm; Wt 73.2 kg
[~2020-11-22 06:45] MED LIST changes: +CLINDAMYCIN 900 MG in IV 1 EA IV ONE; +LR 1,000 ML IV ONE
[2020-11-22] MEDS ORDERED: propofoL 200 MG/20 ML VIAL As Ordered ONE (11:35)
[2020-11-22] MEDS ORDERED: LIDOCAINE 2% 100MG/5ML SDV (FOR ANES.) As Ordered ONE (11:35)
[2020-11-22] MEDS ORDERED: ROCURONIUM BROMIDE 50 MG/5 ML VIAL As Ordered ONE ×2 (11:35→12:41)
[2020-11-22] MEDS ORDERED: MIDAZOLAM INJ 2MG/2ML VIAL (J2250 PER 1MG) As Ordered ONE (11:35)
[2020-11-22] MEDS ORDERED: LIDOCAINE 1% MDV 20ML VIAL As Ordered ONE (11:50)
[2020-11-22] MEDS ORDERED: EPINEPHrine INJ 1 MG/ML 1ML AMP As Ordered ONE (11:51)
[2020-11-22] MEDS ORDERED: BACITRACIN PWD 50,000 UNITS VIAL As Ordered ONE (11:51)
[2020-11-22] MEDS ORDERED: BUPIVACAINE LIPOSOME/PF 1.3% 20ML VIAL (13.3MG/ML)(EXPAREL)(C9290 PER1MG) As Ordered ONE ×2 (11:51→13:24)
[2020-11-22] MEDS ORDERED: HEPARIN SOD (PORCINE) 5000UNITS/ML 1ML VIAL/SYRINGE As Ordered ONE (12:20)
[2020-11-22] MEDS ORDERED: fentaNYL 100 MCG/2 ML INJECTION (J3010) As Ordered ONE (12:33)
[2020-11-22] MEDS ORDERED: SUGAMMADEX SODIUM 500 MG/5 ML VIAL (BRIDION) As Ordered ONE (12:33)
[2020-11-22] MEDS ORDERED: dexameTHASONE 4 MG/ML 1ML VIAL (J1100 PER 1MG) As Ordered ONE (12:39)
[2020-11-22] MEDS ORDERED: ONDANSETRON 4MG/2ML VIAL As Ordered ONE (12:39)
[2020-11-22] MEDS ORDERED: HYDROmorphone HCL 2 MG/ML 1ML VIAL (J1170) As Ordered ONE (12:43)
[2020-11-22] MEDS ORDERED: ACETAMINOPHEN 1000MG 100ML IV BTL (OFIRMEV) (J0131 PER 10MG) As Ordered ONE (13:26)
[2020-11-22] MEDS ORDERED: MORPHINE 2 MG/ML 1ML VIAL (J2270) IV PRN (16:00)
[2020-11-22] MEDS ORDERED: LR 1,000 ML IV SCH ×2 (16:00→16:20)
[2020-11-22] MEDS ORDERED: ONDANSETRON 4MG/2ML VIAL IV PRN ×2 (16:00→16:20)
[2020-11-22] MEDS ORDERED: traMADol 50 MG TAB PO PRN (16:00)
[2020-11-22] MEDS ORDERED: fentaNYL 100 MCG/2 ML INJECTION (J3010) IV PRN (16:20)
[2020-11-22] MEDS ORDERED: oxyCODONE 5MG TAB PO PRN (16:20)
--- NOTE | 2020-11-22 16:21 | POST-OPPD ---
Postoperative Procedure Note Date Of Procedure: November 22, 2020 PREOPERATIVE DIAGNOSIS: Left breast acquired deformity s/p mastectomy. POSTOPERATIVE DIAGNOSIS: same FINDINGS: Left breast mastectomy. PROCEDURE: Immediate post mastectomy breast reconstruction with manager shell placement. SURGEON: Dr Conner SHEEP OR CALF GRADER: Dr Hernandez ANESTHESIA: General SPECIMENS: none ESTIMATED BLOOD LOSS: 10cc REPLACED: none DRAINS: 15 Fr round drains x 2 COMPLICATIONS: none POSTOPERATIVE CONDITION: stable LEIGH ANN CONNER DO November 22, 2020 16:21
--- NOTE | 2020-11-22 16:22 | ROOPDOC ---
[facility] Report Of Operation Report of Operation DATE OF PROCEDURE: 11/22/20 PREOPERATIVE DIAGNOSIS: Left breast acquired deformity s/p mastectomy. POSTOPERATIVE DIAGNOSIS: same FINDINGS: Left breast mastectomy. PROCEDURE: Immediate post mastectomy breast reconstruction with licensed pharmacist placement. SURGEON: Dr Conner SPANISH INTERPRETER: Dr Hernandez ANESTHESIA: General SPECIMENS: none ESTIMATED BLOOD LOSS: 10cc REPLACED: none DRAINS: 15 Fr round drains x 2 COMPLICATIONS: none POSTOPERATIVE CONDITION: stable This is a 45-year-old female status post Left skin spearing mastectomy with SLNBx, who is planned to have immediate licensed pharmacist placed for reconstruction with expender to implant, subpectoral approach. The day of surgery patient was marked in the upright position. Informed consent was confirmed. Risks benefits and alternatives discussed with the patient in details. Mastectomy part of the procedure is dictated by Dr. Hernandez. After a oncology part of the procedure was completed she was prepped and draped in the usual sterile fashion. We used peek cautery to elevate pectoralis muscle to create a new pocket under use of direct vision with lighted retractor. Hemostasis was obtained. For inferior lateral coverage of the pocket we raised flap from serratus anterior muscle. The help of assistant associate professor was instrumental for proper visualization of anatomic structures. While Dr Bolton was irrigating the pocket and providing Exparel for anesthesia, I prepped licensed pharmacist on the back table. All air was expelled from the licensed pharmacist, it was rinsed with bacitracin irrigation. 350 cc [place] moderate profile licensed pharmacist was introduced into subpectoral pocket without tension. Pocket closed with interrupted 3-0 Vicryl sutures. 15 [place] round drain was introduced through separate stab incision, one for the axilla and one for the breast. Social Service Manager reexpanded with NS to 180 cc. Vertically oriented incision closed with interrupted 3-0 Monocryl sutures and 3- 0 Vicryl sutures. Area of areolar excision was closed with purstring fashion. Prinio dressing applied to the incision followed by a bulky dressing and a surgical bra. Patient extubated without any difficulties and transferred to recovery room in stable condition. LEIGH ANN CONNER DO November 22, 2020 16:22
--- NOTE | 2020-11-22 17:02 | REP ---
INDICATION: LEFT BREAST CA. COMPARISON: None. TECHNIQUE: The procedure was performed under the direct supervision of Dr. Alvarez. The images were reviewed with Dr. Reyes. The risks and benefits of the procedure were explained to the patient and informed consent was obtained. Using topical anesthetic and sterile technique 0.994 mCi of technetium 99 filtered sulfur colloid was injected subdermally in 8 fractionated periareolar injections. Images obtained 1 hour after injection show no axillary focus of uptake. FINDINGS: None IMPRESSION: Left breast lymphoscintigraphy. There is no axillary focus of uptake identified. <Electronically signed by Brian Costa > 11/22/20 [id number] <Electronically signed by Mark Alvarez > 11/22/20 [id number]
[2020-11-22 17:30] VITALS: BP 105/75
[2020-11-22 18:00] VITALS: BP 108/71
[2020-11-22] MEDS: ACETAMINOPHEN TAB 650MG DOSE (2X325MG) PO PRN (18:33)
[2020-11-22 19:00] VITALS: BP 121/72
[2020-11-22 20:00] VITALS: BP 136/68
[2020-11-22] MEDS: CLINDAMYCIN 900 MG in IV 1 EA IV SCH (20:22)
[2020-11-22 21:00] VITALS: BP 107/74
[2020-11-23] MEDS: ACETAMINOPHEN TAB 650MG DOSE (2X325MG) PO PRN (01:28)
[2020-11-23] MEDS: CLINDAMYCIN 900 MG in IV 1 EA IV SCH ×2 (03:37→11:21)
[2020-11-23 06:00] VITALS: BP 113/55
--- NOTE | 2020-11-23 09:53 | IPNPDOC ---
Subjective General Date Seen: November 23, 2020 Subject Chief Complaint/History The patient is a 45-year-old female admitted with a reason for visit of Left Breast Cancer, Sentinal Node Bx, Acquired.... Patient status post immediate postmastectomy reconstruction left breast. Postop day 1. She is doing well, ambulating, pain controlled. Current Medications Current Medications Current Medications Medications (Trade) Dose Ordered Sig/Kevin Route PRN Reason Start Time Stop Time Status Last Admin Dose Admin Acetaminophen (Tylenol Tab) 650 mg Q6H PRN PO MILD PAIN (PS 1-4) 11/22/20 16:00 11/23/20 01:28 Clindamycin Phosphate 900 mg/ IV Miscellaneous Supplies 50 ml @ 50 mls/hr 0430,1230,2030 IV 11/22/20 20:30 11/23/20 13:29 11/23/20 03:37 Fentanyl Citrate (Sublimaze) 25 mcg Q5MP PRN IV PAIN LEVEL 5-10 11/22/20 16:20 11/22/20 18:20 DC Lactated Ringer's 1,000 ml @ 70 mls/hr [id number] IV 11/22/20 16:00 11/23/20 06:13 DC 11/22/20 17:41 Lactated Ringer's 1,000 ml @ 100 mls/hr Q10H IV 11/22/20 16:20 11/22/20 18:20 DC Morphine Sulfate (Morphine Sulfate Inj) 2 mg Q3H PRN IV SEVERE PAIN (PS 8-10) 11/22/20 16:00 Ondansetron HCl (ZOFRAN INJection) 4 mg Q4H PRN IV NAUSEA OR VOMITING 11/22/20 16:00 Ondansetron HCl (ZOFRAN INJection) 4 mg Q4HP PRN IV NAUSEA OR VOMITING 11/22/20 16:20 11/22/20 18:20 DC Oxycodone HCl (Roxicodone, Oxyir) 5 mg ASDIRECTED PRN PO PAIN LEVEL 1-4 11/22/20 16:20 11/22/20 18:20 DC Tramadol HCl (Ultram) 50 mg Q4HP PRN PO MODERATE PAIN (PS 5-7) 11/22/20 16:00 Allergies Coded Allergies: Penicillins (Verified Allergy, Mild, HIVES, 11/09/20) Objective Physical Examination Examination GENERAL APPEARANCE:Patient seen, laying in bed, awake, alert, and oriented. Comfortable, in no acute distress. SKIN: Warm and moist. BREAST: Left soft, non-tender incision intact. EAMON drains: 30/3 cc/24 hr. Flap viable, pink, warm. HEENT: Normocephalic, atraumatic. [place] palpebral conjunctiva, anicteric sclerae. Lips and mucosa appear moist. NECK: Supple, no thyromegaly. No obvious jugular venous distention. LUNGS: Clear to auscultation bilaterally. No wheezing appreciated. HEART: No chest wall abnormalities. Regular rate and rhythm with no murmurs appreciated. Vital Signs Vital Signs Date Time Temp Pulse Resp B/P (MAP) Pulse Ox O2 Delivery O2 Flow Rate FiO2 11/23/20 06:00 98.3 66 18 113/55 (74) 95 Room Air I&Os I&O- Last 24 Hours up to 6 AM 11/23/20 05:59 Intake Total 1620 ml Output Total 133 ml Balance 1487 ml Impression S/p immediate left breast reconstruction with tissue nipping machine operator. Doing well. Stable for discharge. F/up plastic surgery. Monitor EAMON drains at home. Plan / VTE VTE Prophylaxis Ordered?: Yes LEIGH ANN CONNER DO November 23, 2020 09:53
[2020-11-23] MEDS ORDERED: TRAM50TA2 PO (09:57)
[2020-11-23 10:00] VITALS: BP 112/51
--- NOTE | 2020-11-23 22:35 | IPNPDOC ---
Subjective General Date Seen: November 23, 2020 (7am) Subject Chief Complaint/History The patient is a 45-year-old female admitted with a reason for visit of Left Breast Cancer postop tx doing well postop, no n/v. Bm+ void +, jps w small amount Current Medications Current Medications Current Medications Medications (Trade) Dose Ordered Sig/Kevin Route PRN Reason Start Time Stop Time Status Last Admin Dose Admin Acetaminophen (Tylenol Tab) 650 mg Q6H PRN PO MILD PAIN (PS 1-4) 11/22/20 16:00 11/23/20 14:30 DC 11/23/20 01:28 Clindamycin Phosphate 900 mg/ IV Miscellaneous Supplies 50 ml @ 50 mls/hr 0430,1230,2030 IV 11/22/20 20:30 11/23/20 13:29 DC 11/23/20 11:21 Fentanyl Citrate (Sublimaze) 25 mcg Q5MP PRN IV PAIN LEVEL 5-10 11/22/20 16:20 11/22/20 18:20 DC Lactated Ringer's 1,000 ml @ 70 mls/hr [id number] IV 11/22/20 16:00 11/23/20 06:13 DC 11/22/20 17:41 Lactated Ringer's 1,000 ml @ 100 mls/hr Q10H IV 11/22/20 16:20 11/22/20 18:20 DC Morphine Sulfate (Morphine Sulfate Inj) 2 mg Q3H PRN IV SEVERE PAIN (PS 8-10) 11/22/20 16:00 11/23/20 14:30 DC Ondansetron HCl (ZOFRAN INJection) 4 mg Q4H PRN IV NAUSEA OR VOMITING 11/22/20 16:00 11/23/20 14:30 DC Ondansetron HCl (ZOFRAN INJection) 4 mg Q4HP PRN IV NAUSEA OR VOMITING 11/22/20 16:20 11/22/20 18:20 DC Oxycodone HCl (Roxicodone, Oxyir) 5 mg ASDIRECTED PRN PO PAIN LEVEL 1-4 11/22/20 16:20 11/22/20 18:20 DC Tramadol HCl (Ultram) 50 mg Q4HP PRN PO MODERATE PAIN (PS 5-7) 11/22/20 16:00 11/23/20 14:30 DC Allergies Coded Allergies: Penicillins (Verified Allergy, Mild, HIVES, 11/09/20) Objective Physical Examination Examination GENERAL APPEARANCE: alert, and oriented. BREAST: Right breast appears normal, L mastectomy flap viable, jps w s/s LUNGS: breathing comfortably on RA HEART: no tachycardia ABDOMEN: soft Vital Signs Vital Signs Date Time Temp Pulse Resp B/P (MAP) Pulse Ox O2 Delivery O2 Flow Rate FiO2 11/23/20 10:00 97.8 73 18 112/51 (71) 94 Room Air I&Os I&O- Last 24 Hours up to 6 AM 11/23/20 06:00 Intake Total 1620 ml Output Total 133 ml Balance 1487 ml Impression POD1 L SSM w SLNBx - stable for dc -f/u in office w Dr Pate -f/u with plastic - monitor drains Plan / VTE VTE Prophylaxis Ordered?: Yes LEONA PATE DO November 23, 2020 22:35
== END 2020-11-23 12:40 | disposition home or self-care (01) ==
LOC: M SDC 06:45 → M MS5PR 15:58
PROVIDERS: ADMIT Surgery; ATTEND Surgery
DX: C50.912 Malignant neoplasm of unspecified site of left female breast (principal); N60.22 Fibroadenosis of left breast; D05.12 Intraductal carcinoma in situ of left breast; E03.9 Hypothyroidism, unspecified; Z88.0 Allergy status to penicillin; K21.9 Gastro-esophageal reflux disease without esophagitis; Z79.899 Other long term (current) drug therapy; Z80.3 Family history of malignant neoplasm of breast; Z87.891 Personal history of nicotine dependence; Z98.84 Bariatric surgery status
CPT/HCPCS: 19303; 19357; 36415; 38525; 78195; 81025; 86850; 86900; 86901; 88307; 96365; 96366; A9541; C1789; C9290; J0131; J1100; J1170; J1644; J2250; J2405; J3010

== ENCOUNTER → 2021-02-04 | Outpatient (REF) | payer OTHER ==
[~2021-02-04] MED LIST changes: -CLINDAMYCIN 900 MG in IV 1 EA IV ONE; -LR 1,000 ML IV ONE; +TRAM50TA2 PO
== END ==
LOC: M WUC 17:08
PROVIDERS: ATTEND Physician Assistant
DX: J02.9 Acute pharyngitis, unspecified (principal)

== ENCOUNTER → 2021-05-04 | Outpatient (REF) | payer OTHER | LOC: M SFHCWAGY 19:10 | PROVIDERS: ATTEND Nurse Practitioner Women's Health | DX: Z12.4 Encounter for screening for malignant neoplasm of cervix (principal) | CPT/HCPCS: 87624; G0123 ==

== ENCOUNTER → 2021-06-23 | Outpatient (CLI) | payer OTHER ==
[~2021-06-23] MED LIST changes: +OMEP-173 PO
== END ==
LOC: M WHC 07:32
PROVIDERS: ATTEND Surgery
DX: D05.12 Intraductal carcinoma in situ of left breast (principal); Z90.12 Acquired absence of left breast and nipple
CPT/HCPCS: 77065; G0279

== ENCOUNTER → 2021-08-30 | Outpatient (CLI) | payer OTHER | LOC: M RAD 16:01 | PROVIDERS: ATTEND Internal Medicine Medical Oncology | DX: N93.9 Abnormal uterine and vaginal bleeding, unspecified (principal); D05.12 Intraductal carcinoma in situ of left breast ==

== ENCOUNTER → 2021-09-08 | Outpatient (CLI) | payer OTHER ==
[~2021-09-08] MED LIST changes: -D31000TA2 PO; +VITA100093 PO
[2021-09-08 16:24] LABS: HEMATOCRIT 38.8 % (36.0-47.0); HEMOGLOBIN 12.8 g/dl (12.0-15.5); MEAN CORPUSCULAR HEMOGLOBIN 31.4 pg (27.0-33.0); MEAN CORPUSCULAR VOLUME 95.1 fl (80.0-96.0); PLATELET COUNT, AUTOMATED 241 10^3/uL (150-450); RED BLOOD COUNT 4.08 10^6/uL (4.00-5.40); WHITE BLOOD COUNT 5.2 10^3/uL (4.0-10.0)
[2021-09-08 16:50] LABS: BLOOD UREA NITROGEN 17 MG/DL (7-18); CALCIUM LEVEL 9.1 MG/DL (8.5-10.1); CARBON DIOXIDE LEVEL 25 MEQ/L (21-32); CHLORIDE LEVEL 110 MEQ/L (98-107); CREATININE FOR GFR 0.79 MG/DL (0.55-1.30); FREE T4 1.08 NG/DL (0.76-1.46); GLOMERULAR FILTRATION RATE > 60.0 (>58); GLUCOSE, FASTING 79 MG/DL (70-100); SODIUM LEVEL 142 MEQ/L (136-145)
== END ==
LOC: M RAD 14:49
PROVIDERS: ATTEND Plastic Surgery Surgery of the Hand
DX: C50.912 Malignant neoplasm of unspecified site of left female breast (principal); N64.89 Other specified disorders of breast; Z90.12 Acquired absence of left breast and nipple

== ENCOUNTER → 2021-09-28 | Outpatient (CLI) | payer OTHER ==
[~2021-09-28] MED LIST changes: +PHEN37.58 PO
== END ==
LOC: M LABSMTC 09:25
PROVIDERS: ATTEND Anesthesiology
DX: Z01.818 Encounter for other preprocedural examination (principal); Z11.52 Encounter for screening for COVID-19

== ENCOUNTER 2021-10-03 08:39 | Observation (INO) | payer OTHER ==
[~2021-10-03] VITALS: Ht 165.1 cm; Wt 75.3 kg
[~2021-10-03 08:39] MED LIST changes: +CLINDAMYCIN 600 MG in IV 1 EA IV ONE; +LIDOCAINE 1% MDV 20ML VIAL SQ PRN; +LR 1,000 ML IV ONE
[2021-10-03] MEDS ORDERED: GENTAMICIN SULF 80MG/2ML VIAL As Ordered ONE (09:46)
[2021-10-03] MEDS ORDERED: BUPIVACAINE LIPOSOME/PF 1.3% 20ML VIAL (13.3MG/ML)(EXPAREL) As Ordered ONE (09:46)
[2021-10-03] MEDS ORDERED: LIDOCAINE 2% 100MG/5ML SDV (FOR ANES.) As Ordered ONE (10:01)
[2021-10-03] MEDS ORDERED: fentaNYL 250 MCG/5 ML INJECTION As Ordered ONE (10:01)
[2021-10-03] MEDS ORDERED: ROCURONIUM BROMIDE 50 MG/5 ML VIAL As Ordered ONE ×3 (10:01→11:52)
[2021-10-03] MEDS ORDERED: dexameTHASONE 4 MG/ML 1ML VIAL (J1100 PER 1MG) As Ordered ONE (10:01)
[2021-10-03] MEDS ORDERED: propofoL 200 MG/20 ML VIAL As Ordered ONE (10:01)
[2021-10-03] MEDS ORDERED: ONDANSETRON 4MG/2ML VIAL As Ordered ONE (10:01)
[2021-10-03] MEDS ORDERED: MIDAZOLAM INJ 2MG/2ML VIAL (J2250 PER 1MG) As Ordered ONE (10:02)
[2021-10-03] MEDS ORDERED: BUPIVACAINE HCL 0.25% 10ML VIAL As Ordered ONE (10:52)
[2021-10-03] MEDS ORDERED: ACETAMINOPHEN 1000MG 100ML IV BTL (OFIRMEV) (J0131 PER 10MG) As Ordered ONE (11:43)
[2021-10-03] MEDS ORDERED: SUGAMMADEX SODIUM 500 MG/5 ML VIAL (BRIDION) As Ordered ONE (11:44)
[2021-10-03] MEDS ORDERED: METOCLOPRAMIDE INJ 10MG/2ML VIAL (J2765 PER 1) As Ordered ONE (11:44)
[2021-10-03] MEDS ORDERED: HYDROmorphone HCL 2MG/ML 1ML VIAL As Ordered ONE (11:53)
[2021-10-03] MEDS ORDERED: SEVOFLURANE INHAL SOLN 250 ML BTL As Ordered ONE (11:58)
[2021-10-03] MEDS ORDERED: ONDANSETRON 4MG/2ML VIAL IV PRN ×2 (13:55→14:15)
[2021-10-03] MEDS ORDERED: PERCOCET 5MG/325MG TAB PO PRN ×2 (13:55→14:15)
[2021-10-03] MEDS ORDERED: ACETAMINOPHEN TAB 650MG DOSE (2X325MG) PO PRN (13:55)
[2021-10-03] MEDS ORDERED: KETOROLAC TROMETHAMINE 10 MG TAB PO PRN (13:55)
[2021-10-03] MEDS ORDERED: fentaNYL 100 MCG/2 ML INJECTION IV PRN (14:15)
[2021-10-03] MEDS ORDERED: METOCLOPRAMIDE INJ 10MG/2ML VIAL (J2765 PER 1) IV PRN (14:15)
[2021-10-03] MEDS ORDERED: LR 1,000 ML IV SCH (14:15)
[2021-10-03 14:50] VITALS: BP 130/70
[2021-10-03 15:20] VITALS: BP 134/71
[2021-10-03 15:50] VITALS: BP 131/70
[2021-10-03 16:50] VITALS: BP 132/70
[2021-10-03 17:50] VITALS: BP 128/67
[2021-10-03] MEDS: LR 1,000 ML IV SCH (18:08)
[2021-10-03 22:00] VITALS: BP 131/76
[2021-10-04] MEDS: LR 1,000 ML IV SCH (03:15)
[2021-10-04] MEDS ORDERED: LEVOTHYROXINE 50MCG TABLET (0.05MG) PO SCH (06:00)
[2021-10-04 06:41] VITALS: BP 103/56
[2021-10-04] MEDS ORDERED: PERCOCET PO (08:41)
[2021-10-04] MEDS ORDERED: VITAMIN D 1,000 INTERNATIONAL UNITS TABLET PO SCH (09:00)
[2021-10-04] MEDS ORDERED: OMEPRAZOLE 20MG CAP PO SCH (09:00)
[2021-10-04] MEDS ORDERED: CETIRIZINE (ZyrTEC) 10 MG TAB PO SCH (09:00)
== END 2021-10-04 09:30 | disposition home or self-care (01) ==
LOC: M SDC 08:39 → M MS5PR 08:40 → UNDOADMOB 13:55 → M MS5PR 13:55
PROVIDERS: ADMIT Plastic Surgery Surgery of the Hand; ATTEND Plastic Surgery Surgery of the Hand
DX: C50.912 Malignant neoplasm of unspecified site of left female breast (principal); N64.81 Ptosis of breast; Z98.84 Bariatric surgery status; Z88.0 Allergy status to penicillin; E03.9 Hypothyroidism, unspecified; K21.9 Gastro-esophageal reflux disease without esophagitis; Z79.899 Other long term (current) drug therapy
CPT/HCPCS: 19316; 19342; 81025; 88300; 88302; 88305; C9290; J0131; J1100; J1170; J1580; J2250; J2405; J2765; J3010; L8600

== ENCOUNTER → 2021-10-09 | Outpatient (CLI) | payer OTHER ==
[~2021-10-09] MED LIST changes: -CLINDAMYCIN 600 MG in IV 1 EA IV ONE; -LIDOCAINE 1% MDV 20ML VIAL SQ PRN; -LR 1,000 ML IV ONE; +PERCOCET PO
[2021-10-09 10:57] LABS: BASO # 0.1 10^3/uL (0.0-0.2); BASO % 1.1 % (0.0-1.0); EOS # 0.1 10^3/uL (0.0-0.5); EOS % 2.2 % (0.0-3.0); HEMATOCRIT 40.6 % (36.0-47.0); HEMOGLOBIN 13.1 g/dl (12.0-15.5); LYMPH % 22.8 % (24.0-44.0); MEAN CORPUSCULAR HGB CONC 32.3 g/dl (32.0-36.5); MEAN CORPUSCULAR VOLUME 99.3 fl (80.0-96.0); MONO # 0.5 10^3/uL (0.0-0.8); MONO % 10.3 % (2.0-8.0); NEUTROPHILS # 2.9 10^3/uL (1.5-8.5); NEUTROPHILS % 63.4 % (36.0-66.0); PLATELET COUNT, AUTOMATED 263 10^3/uL (150-450); RED BLOOD COUNT 4.09 10^6/uL (4.00-5.40); WHITE BLOOD COUNT 4.6 10^3/uL (4.0-10.0)
[2021-10-09 11:31] LABS: ALBUMIN 3.3 GM/DL (3.2-5.2); ALT/SGPT 32 U/L (12-78); BILIRUBIN,TOTAL 0.5 MG/DL (0.2-1.0); BLOOD UREA NITROGEN 10 MG/DL (7-18); CALCIUM LEVEL 8.5 MG/DL (8.5-10.1); CARBON DIOXIDE LEVEL 31 MEQ/L (21-32); CHLORIDE LEVEL 108 MEQ/L (98-107); CHOLESTEROL LEVEL 156 MG/DL (<200); CHOLESTEROL RISK RATIO 2.025 (<5); FREE T4 0.87 NG/DL (0.76-1.46); GLOMERULAR FILTRATION RATE > 60.0 (>58); GLUCOSE, FASTING 89 MG/DL (70-100); HDL CHOLESTEROL 77 MG/DL (>40); LDL CHOLESTEROL 62 MG/DL (<100); NON-HDL-C 79 MG/DL; POTASSIUM SERUM 4.3 MEQ/L (3.5-5.1); SODIUM LEVEL 141 MEQ/L (136-145); TOTAL PROTEIN 6.8 GM/DL (6.4-8.2); TRIGLYCERIDES LEVEL 84 MG/DL (<150)
[2021-10-09 11:33] LABS: VITAMIN B12 LEVEL 453 PG/ML (247-911)
== END ==
LOC: M LAB 09:48
PROVIDERS: ATTEND Nurse Practitioner Family
DX: Z00.01 Encounter for general adult medical examination with abnormal findings (principal); Z79.899 Other long term (current) drug therapy; Z98.84 Bariatric surgery status; D51.8 Other vitamin B12 deficiency anemias; E03.9 Hypothyroidism, unspecified

== ENCOUNTER → 2021-12-08 | Outpatient (CLI) | payer OTHER ==
[~2021-12-08] MED LIST changes: +PROHANCE 279.3MG/ML 15ML VIAL ONE
== END ==
LOC: M PLAIMG 13:49
PROVIDERS: ATTEND Surgery
DX: Z98.82 Breast implant status (principal); Z91.89 Other specified personal risk factors, not elsewhere classified; Z85.3 Personal history of malignant neoplasm of breast
CPT/HCPCS: A9576; C8908

== ENCOUNTER → 2021-12-12 | Outpatient (CLI) | payer OTHER ==
[~2021-12-12] MED LIST changes: +PERC5TAB12 PO; -PROHANCE 279.3MG/ML 15ML VIAL ONE
== END ==
LOC: M LABSMTC 09:09
PROVIDERS: ATTEND Anesthesiology
DX: Z01.812 Encounter for preprocedural laboratory examination (principal); Z20.822 Contact with and (suspected) exposure to COVID-19

== ENCOUNTER 2021-12-13 10:00 | Day surgery (SDC) | payer OTHER ==
[~2021-12-13] VITALS: Ht 165.1 cm; Wt 73.9 kg
[~2021-12-13 10:00] MED LIST changes: -PERC5TAB12 PO; +ceFAZolin SOD 2 GM in IV 1 EA IV ONE
[2021-12-13] MEDS ORDERED: LR 1,000 ML IV SCH ×3 (10:25→15:10)
[2021-12-13 10:54] LABS: HEMATOCRIT 42.1 % (36.0-47.0); HEMOGLOBIN 13.6 g/dl (12.0-15.5); MEAN CORPUSCULAR HEMOGLOBIN 31.1 pg (27.0-33.0); MEAN CORPUSCULAR HGB CONC 32.3 g/dl (32.0-36.5); MEAN CORPUSCULAR VOLUME 96.3 fl (80.0-96.0); PLATELET COUNT, AUTOMATED 271 10^3/uL (150-450); RED BLOOD COUNT 4.37 10^6/uL (4.00-5.40); WHITE BLOOD COUNT 4.1 10^3/uL (4.0-10.0)
[2021-12-13] MEDS ORDERED: ROCURONIUM BROMIDE 50 MG/5 ML VIAL As Ordered ONE ×2 (11:53→13:53)
[2021-12-13] MEDS ORDERED: MIDAZOLAM INJ 2MG/2ML VIAL (J2250 PER 1MG) As Ordered ONE (11:53)
[2021-12-13] MEDS ORDERED: propofoL 200 MG/20 ML VIAL As Ordered ONE (11:53)
[2021-12-13] MEDS ORDERED: fentaNYL 250 MCG/5 ML INJECTION As Ordered ONE (11:53)
[2021-12-13] MEDS ORDERED: LIDOCAINE 2% 100MG/5ML SDV (FOR ANES.) As Ordered ONE (11:53)
[2021-12-13] MEDS ORDERED: BUPIVACAINE/EPIN 0.25% 30 ML VIAL As Ordered ONE (13:02)
[2021-12-13] MEDS ORDERED: FLUORESCEIN 10% (100MG/ML) 5ML VIAL As Ordered ONE (13:02)
[2021-12-13] MEDS ORDERED: dexameTHASONE 4 MG/ML 1ML VIAL (J1100 PER 1MG) As Ordered ONE (13:42)
[2021-12-13] MEDS ORDERED: ONDANSETRON 4MG/2ML VIAL As Ordered ONE (13:42)
[2021-12-13] MEDS ORDERED: SUGAMMADEX SODIUM 500 MG/5 ML VIAL (BRIDION) As Ordered ONE (14:14)
[2021-12-13] MEDS ORDERED: HYDROmorphone HCL 2MG/ML 1ML VIAL As Ordered ONE (14:15)
[2021-12-13] MEDS ORDERED: ACETAMINOPHEN 1000MG 100ML IV BTL (OFIRMEV) (J0131 PER 10MG) As Ordered ONE ×2 (14:17→15:32)
[2021-12-13] MEDS ORDERED: KETOROLAC 60MG 2ML VIAL As Ordered ONE (14:20)
[2021-12-13] MEDS ORDERED: METOCLOPRAMIDE INJ 10MG/2ML VIAL (J2765 PER 1) As Ordered ONE (14:20)
[2021-12-13] MEDS ORDERED: fentaNYL 100 MCG/2 ML INJECTION IV PRN (14:35)
[2021-12-13] MEDS ORDERED: METOCLOPRAMIDE INJ 10MG/2ML VIAL (J2765 PER 1) IV PRN (14:35)
[2021-12-13] MEDS ORDERED: oxyCODONE 5MG TAB PO PRN (14:35)
[2021-12-13] MEDS ORDERED: HYDROMORPHONE HCL 0.5 MG/ 0.5 ML SYRINGE (J1170 PER 1) IV PRN (14:35)
[2021-12-13] MEDS ORDERED: ONDANSETRON 4MG/2ML VIAL IV PRN (14:35)
[2021-12-13] MEDS ORDERED: PERC5TAB12 PO (14:42)
[2021-12-13] MEDS ORDERED: PERCOCET 5MG/325MG TAB PO PRN (15:10)
[2021-12-13 17:15] VITALS: BP 125/64
[2021-12-13] MEDS ORDERED: SIMETHICONE 80MG CHEW TAB PO SCH (18:00)
[2021-12-13] MEDS ORDERED: IBUPROFEN 800 MG TAB PO SCH (21:00)
== END 2021-12-13 17:25 | disposition home or self-care (01) ==
LOC: M SDC 10:00
PROVIDERS: ATTEND Obstetrics & Gynecology
DX: N92.1 Excessive and frequent menstruation with irregular cycle (principal); E03.9 Hypothyroidism, unspecified; K21.9 Gastro-esophageal reflux disease without esophagitis; Z88.0 Allergy status to penicillin; Z98.84 Bariatric surgery status; Z85.3 Personal history of malignant neoplasm of breast; Z79.899 Other long term (current) drug therapy
CPT/HCPCS: 36415; 58571; 81025; 85027; 86850; 86900; 86901; 88307; J0131; J0690; J1100; J1170; J1885; J2250; J2405; J2765; J3010; S2900

== ENCOUNTER → 2022-05-12 | Outpatient (CLI) | payer OTHER ==
[~2022-05-12] MED LIST changes: +ANAS1TAB2 PO; +PERC5TAB12 PO; -ceFAZolin SOD 2 GM in IV 1 EA IV ONE
[2022-05-12 10:11] LABS: BASO # 0.1 10^3/uL (0.0-0.2); BASO % 0.9 % (0.0-1.0); EOS # 0.1 10^3/uL (0.0-0.5); EOS % 1.3 % (0.0-3.0); HEMATOCRIT 43.6 % (36.0-47.0); HEMOGLOBIN 13.6 g/dl (12.0-15.5); LYMPH # 1.5 10^3/uL (1.5-5.0); LYMPH % 27.5 % (24.0-44.0); MEAN CORPUSCULAR HGB CONC 31.2 g/dl (32.0-36.5); MONO # 0.5 10^3/uL (0.0-0.8); MONO % 9.6 % (2.0-8.0); NEUTROPHILS # 3.2 10^3/uL (1.5-8.5); NEUTROPHILS % 60.5 % (36.0-66.0); PLATELET COUNT, AUTOMATED 291 10^3/uL (150-450); RED BLOOD COUNT 4.54 10^6/uL (4.00-5.40); WHITE BLOOD COUNT 5.3 10^3/uL (4.0-10.0)
[2022-05-12 10:39] LABS: HEMOGLOBIN A1c 5.3 %
[2022-05-12 11:09] LABS: ALBUMIN 3.6 GM/DL (3.2-5.2); ALT/SGPT 30 U/L (12-78); BILIRUBIN,TOTAL 0.3 MG/DL (0.2-1.0); BLOOD UREA NITROGEN 12 MG/DL (7-18); CALCIUM LEVEL 9.2 MG/DL (8.5-10.1); CARBON DIOXIDE LEVEL 30 MEQ/L (21-32); CHLORIDE LEVEL 106 MEQ/L (98-107); CHOLESTEROL LEVEL 166 MG/DL (<200); CHOLESTEROL RISK RATIO 1.908 (<5); CREATININE FOR GFR 0.71 MG/DL (0.55-1.30); FREE T4 0.86 NG/DL (0.76-1.46); GLOMERULAR FILTRATION RATE > 60.0 (>58); GLUCOSE, FASTING 90 MG/DL (70-100); HDL CHOLESTEROL 87 MG/DL (>40); LDL CHOLESTEROL 68 MG/DL (<100); NON-HDL-C 79 MG/DL; POTASSIUM SERUM 4.4 MEQ/L (3.5-5.1); SODIUM LEVEL 140 MEQ/L (136-145); TOTAL PROTEIN 7.2 GM/DL (6.4-8.2); TRIGLYCERIDES LEVEL 57 MG/DL (<150)
[2022-05-14 08:57] LABS: VITAMIN B12 LEVEL 422 PG/ML (247-911)
== END ==
LOC: M LAB 09:13
PROVIDERS: ATTEND Nurse Practitioner Family
DX: Z00.01 Encounter for general adult medical examination with abnormal findings (principal); Z13.1 Encounter for screening for diabetes mellitus; E03.9 Hypothyroidism, unspecified; D51.8 Other vitamin B12 deficiency anemias; Z13.220 Encounter for screening for lipoid disorders; Z79.899 Other long term (current) drug therapy

== ENCOUNTER → 2022-07-23 | Outpatient (CLI) | payer OTHER ==
[~2022-07-23] MED LIST changes: +CALC-364 PO; +GABA-282 PO; +PHEN-239
== END ==
LOC: M RAD 16:47
PROVIDERS: ATTEND Nurse Practitioner Family
DX: Z01.811 Encounter for preprocedural respiratory examination (principal)

== ENCOUNTER → 2022-07-26 | Outpatient (CLI) | payer OTHER | LOC: M LABSMTC 09:44 | PROVIDERS: ATTEND Anesthesiology | DX: Z01.812 Encounter for preprocedural laboratory examination (principal); Z11.52 Encounter for screening for COVID-19 ==

== ENCOUNTER 2022-07-31 08:34 | Day surgery (SDC) | payer OTHER ==
[~2022-07-31] VITALS: Ht 165.1 cm; Wt 80.6 kg
[2022-07-31] MEDS ORDERED: MIDAZOLAM INJ 2MG/2ML VIAL As Ordered ONE (09:06)
[2022-07-31] MEDS ORDERED: ROCURONIUM BROMIDE 50MG/5ML VIAL As Ordered ONE (09:07)
[2022-07-31] MEDS ORDERED: fentaNYL 100 MCG/2 ML INJECTION As Ordered ONE ×3 (09:07→14:54)
[2022-07-31] MEDS ORDERED: ONDANSETRON 4MG 2ML VIAL As Ordered ONE (09:07)
[2022-07-31] MEDS ORDERED: LIDOCAINE 2% 100MG/5ML SDV (FOR ANES.) As Ordered ONE (09:07)
[2022-07-31] MEDS ORDERED: SUGAMMADEX SODIUM 500 MG/5 ML VIAL (BRIDION) As Ordered ONE (09:07)
[2022-07-31] MEDS ORDERED: propofoL 200 MG/20 ML VIAL As Ordered ONE (09:07)
[2022-07-31] MEDS ORDERED: CLINDAMYCIN 900 MG in IV 1 EA IV ONE ×2 (09:10→19:00)
[2022-07-31] MEDS ORDERED: LIDOCAINE 1% MDV 20ML VIAL As Ordered ONE ×2 (11:21→12:43)
[2022-07-31] MEDS ORDERED: BUPIVACAINE HCL 0.25% 10ML VIAL As Ordered ONE (11:21)
[2022-07-31] MEDS ORDERED: BUPIVACAINE LIPOSOME/PF 1.3% 20ML VIAL (13.3MG/ML)(EXPAREL) As Ordered ONE (11:21)
[2022-07-31] MEDS ORDERED: GENTAMICIN SULF 80MG/2ML VIAL As Ordered ONE ×2 (11:21→14:40)
[2022-07-31] MEDS ORDERED: EPINEPHrine INJ 1 MG/ML 1ML AMP As Ordered ONE ×2 (11:21→12:43)
[2022-07-31] MEDS ORDERED: ceFAZolin 1GM VIAL As Ordered ONE (11:54)
[2022-07-31] MEDS ORDERED: ACETAMINOPHEN 1000MG 100ML IV BAG As Ordered ONE (13:47)
[2022-07-31] MEDS ORDERED: ONDANSETRON 4MG 2ML VIAL IV PRN ×2 (15:15→15:30)
[2022-07-31] MEDS ORDERED: oxyCODONE 5MG TAB PO PRN (15:15)
[2022-07-31] MEDS ORDERED: LR 1,000 ML IV SCH ×2 (15:15→15:30)
[2022-07-31] MEDS ORDERED: fentaNYL 100 MCG/2 ML INJECTION IV PRN (15:15)
[2022-07-31] MEDS ORDERED: PERCOCET 5MG/325MG TAB PO PRN (15:30)
[2022-07-31] MEDS ORDERED: ACETAMINOPHEN TAB 650MG DOSE (2X325MG) PO PRN (15:30)
[2022-07-31] MEDS ORDERED: traMADol 50 MG TAB PO PRN (15:30)
[2022-07-31] MEDS ORDERED: OXYC1TAB23 PO (15:43)
[2022-07-31 17:52] VITALS: BP 142/75
[2022-08-01] MEDS ORDERED: LEVOTHYROXINE 50MCG TABLET (0.05MG) PO SCH (06:00)
[2022-08-01] MEDS ORDERED: OMEPRAZOLE 20MG CAP PO SCH (09:00)
== END 2022-07-31 17:53 | disposition home or self-care (01) ==
LOC: M SDC 08:34
PROVIDERS: ATTEND Plastic Surgery Surgery of the Hand
DX: L90.5 Scar conditions and fibrosis of skin (principal); N64.89 Other specified disorders of breast; Z90.12 Acquired absence of left breast and nipple; Z85.3 Personal history of malignant neoplasm of breast; Z87.891 Personal history of nicotine dependence; Z92.21 Personal history of antineoplastic chemotherapy; Z86.718 Personal history of other venous thrombosis and embolism; Z98.84 Bariatric surgery status; J30.2 Other seasonal allergic rhinitis; Z79.899 Other long term (current) drug therapy; Z88.0 Allergy status to penicillin
CPT/HCPCS: 19316; 19370; 88300; 88302; C9290; J0131; J0171; J0690; J1100; J1580; J2250; J2405; J3010; L8600; S0020; S0077

== ENCOUNTER → 2022-11-23 | Outpatient (CLI) | payer OTHER ==
[~2022-11-23] MED LIST changes: +HYDR-3363; +OXYC1TAB23 PO; +PERM5CRE9; +TRIA1CR80
== END ==
LOC: M WHC 14:28
PROVIDERS: ATTEND Nurse Practitioner
DX: Z13.820 Encounter for screening for osteoporosis (principal); C50.912 Malignant neoplasm of unspecified site of left female breast; M85.851 Other specified disorders of bone density and structure, right thigh; M85.852 Other specified disorders of bone density and structure, left thigh; M85.88 Other specified disorders of bone density and structure, other site

== ENCOUNTER → 2022-11-30 | Outpatient (CLI) | payer OTHER ==
[2022-11-30 13:07] LABS: BASO % 0.7 % (0.0-1.0); EOS # 0.2 10^3/uL (0.0-0.5); EOS % 3.2 % (0.0-3.0); HEMATOCRIT 45.5 % (36.0-47.0); HEMOGLOBIN 14.2 g/dl (12.0-15.5); LYMPH # 1.3 10^3/uL (1.5-5.0); LYMPH % 22.3 % (24.0-44.0); MEAN CORPUSCULAR HEMOGLOBIN 29.6 pg (27.0-33.0); MEAN CORPUSCULAR HGB CONC 31.2 g/dl (32.0-36.5); MEAN CORPUSCULAR VOLUME 94.8 fl (80.0-96.0); MONO # 0.6 10^3/uL (0.0-0.8); MONO % 10.5 % (2.0-8.0); NEUTROPHILS # 3.5 10^3/uL (1.5-8.5); NEUTROPHILS % 62.8 % (36.0-66.0); PLATELET COUNT, AUTOMATED 246 10^3/uL (150-450); WHITE BLOOD COUNT 5.6 10^3/uL (4.0-10.0)
[2022-11-30 13:38] LABS: HEMOGLOBIN A1c 5.2 % (4.0-6.0)
[2022-11-30 13:41] LABS: ALBUMIN 3.6 G/DL (3.2-5.2); ALKALINE PHOSPHATASE 89 U/L (46-116); ALT/SGPT 20 U/L (7.0-40); AST/SGOT 20 U/L (<34); BILIRUBIN,TOTAL 0.6 MG/DL (0.3-1.2); BLOOD UREA NITROGEN 15 MG/DL (9-23); CALCIUM LEVEL 8.9 MG/DL (8.5-10.1); CARBON DIOXIDE LEVEL 28 MMOL/L (20-31); CHLORIDE LEVEL 106 MMOL/L (98-107); CHOLESTEROL LEVEL 168 MG/DL (<200); CHOLESTEROL RISK RATIO 1.82 (<5); CREATININE FOR GFR 0.64 MG/DL (0.55-1.30); GLOMERULAR FILTRATION RATE > 60.0 (>58); GLUCOSE, FASTING 95 MG/DL (60-100); HDL CHOLESTEROL 92.1 MG/DL (>40); LDL CHOLESTEROL 64.3 MG/DL (<100); NON-HDL-C 75.9 MG/DL; POTASSIUM SERUM 3.9 MMOL/L (3.5-5.1); SODIUM LEVEL 141 MMOL/L (136-145); TOTAL PROTEIN 6.5 G/DL (5.7-8.2); TRIGLYCERIDES LEVEL 58 MG/DL (<150)
[2022-11-30 13:43] LABS: FREE THYROXINE INDEX 3.4 % (1.3-4.8); T UPTAKE 44.1 % (22.5-37.0); THYROID STIMULATING HORMONE 0.999 uIU/ML (0.55-4.78); THYROXINE (T4) 7.8 UG/DL (4.5-10.9)
== END ==
LOC: M LAB 12:29
PROVIDERS: ATTEND Nurse Practitioner Adult Health
DX: L23.9 Allergic contact dermatitis, unspecified cause (principal); E03.9 Hypothyroidism, unspecified; E66.9 Obesity, unspecified; Z98.84 Bariatric surgery status; Z79.899 Other long term (current) drug therapy

== ENCOUNTER → 2023-01-16 | Outpatient (CLI) | payer OTHER ==
[2023-01-16 17:35] LABS: HEMATOCRIT 40.3 % (36.0-47.0); HEMOGLOBIN 13.3 g/dl (12.0-15.5); MEAN CORPUSCULAR HEMOGLOBIN 30.4 pg (27.0-33.0); MEAN CORPUSCULAR VOLUME 92.2 fl (80.0-96.0); PLATELET COUNT, AUTOMATED 278 10^3/uL (150-450); RED BLOOD COUNT 4.37 10^6/uL (4.00-5.40); WHITE BLOOD COUNT 5.3 10^3/uL (4.0-10.0)
[2023-01-16 17:51] LABS: ALBUMIN 3.8 G/DL (3.2-5.2); ALKALINE PHOSPHATASE 94 U/L (46-116); ALT/SGPT 18 U/L (7.0-40); AST/SGOT 15 U/L (<34); BILIRUBIN,TOTAL 0.4 MG/DL (0.3-1.2); BLOOD UREA NITROGEN 11 MG/DL (9-23); CALCIUM LEVEL 9.9 MG/DL (8.5-10.1); CARBON DIOXIDE LEVEL 27 MMOL/L (20-31); CHLORIDE LEVEL 103 MMOL/L (98-107); CREATININE FOR GFR 0.59 MG/DL (0.55-1.30); GLOMERULAR FILTRATION RATE > 60.0 (>58); GLUCOSE, FASTING 88 MG/DL (60-100); POTASSIUM SERUM 4.1 MMOL/L (3.5-5.1); SODIUM LEVEL 139 MMOL/L (136-145); TOTAL PROTEIN 6.8 G/DL (5.7-8.2)
== END ==
LOC: M EKG 16:42
PROVIDERS: ATTEND Nurse Practitioner Adult Health
DX: Z01.810 Encounter for preprocedural cardiovascular examination (principal); N81.4 Uterovaginal prolapse, unspecified

== ENCOUNTER 2023-02-06 12:29 | Day surgery (SDC) | payer OTHER ==
[~2023-02-06] VITALS: Ht 165.1 cm; Wt 79.5 kg
[~2023-02-06 12:29] MED LIST changes: +PHEN-239 PO; +ceFAZolin SOD 2 GM in IV 1 EA IV ONE
[2023-02-06] MEDS ORDERED: LR 1,000 ML IV SCH (13:15)
[2023-02-06 13:42] LABS: HEMATOCRIT 43.8 % (36.0-47.0); HEMOGLOBIN 13.9 g/dl (12.0-15.5); MEAN CORPUSCULAR HEMOGLOBIN 29.6 pg (27.0-33.0); MEAN CORPUSCULAR HGB CONC 31.7 g/dl (32.0-36.5); MEAN CORPUSCULAR VOLUME 93.4 fl (80.0-96.0); PLATELET COUNT, AUTOMATED 262 10^3/uL (150-450); RED BLOOD COUNT 4.69 10^6/uL (4.00-5.40); WHITE BLOOD COUNT 4.6 10^3/uL (4.0-10.0)
[2023-02-06 14:05] LABS: BLOOD UREA NITROGEN 11 MG/DL (9-23); CALCIUM LEVEL 9.1 MG/DL (8.5-10.1); CARBON DIOXIDE LEVEL 28 MMOL/L (20-31); CHLORIDE LEVEL 106 MMOL/L (98-107); CREATININE FOR GFR 0.62 MG/DL (0.55-1.30); GLOMERULAR FILTRATION RATE > 60.0 (>58); GLUCOSE, FASTING 93 MG/DL (60-100); SODIUM LEVEL 143 MMOL/L (136-145)
[2023-02-06] MEDS ORDERED: PERC5TAB12 PO (17:59)
[2023-02-06] MEDS ORDERED: LIDOCAINE W/EPINEPHRINE 1% 20ML VIAL As Ordered ONE (18:17)
[2023-02-06] MEDS ORDERED: VASOPRESSIN INJ 20UNITS/ML 1ML VIAL As Ordered ONE (18:18)
[2023-02-06] MEDS ORDERED: propofoL 200 MG/20 ML VIAL As Ordered ONE (18:48)
[2023-02-06] MEDS ORDERED: fentaNYL 100 MCG/2 ML INJECTION As Ordered ONE ×2 (18:48→18:49)
[2023-02-06] MEDS ORDERED: KETOROLAC 60MG 2ML VIAL As Ordered ONE (18:48)
[2023-02-06] MEDS ORDERED: LIDOCAINE 2% 100MG/5ML SDV (FOR ANES.) As Ordered ONE (18:48)
[2023-02-06] MEDS ORDERED: ACETAMINOPHEN 1000MG 100ML IV BAG As Ordered ONE (18:48)
[2023-02-06] MEDS ORDERED: MIDAZOLAM INJ 2MG/2ML VIAL As Ordered ONE (18:48)
[2023-02-06] MEDS ORDERED: ONDANSETRON 4MG 2ML VIAL As Ordered ONE (18:48)
[2023-02-06] MEDS ORDERED: ROCURONIUM BROMIDE 50MG/5ML VIAL As Ordered ONE (18:48)
[2023-02-06] MEDS ORDERED: SUGAMMADEX SODIUM 500 MG/5 ML VIAL (BRIDION) As Ordered ONE (18:48)
[2023-02-06] MEDS ORDERED: METOCLOPRAMIDE INJ 10MG/2ML VIAL As Ordered ONE (18:48)
[2023-02-06] MEDS ORDERED: ESTROGENS VAGINAL CREAM 30GM As Ordered ONE (19:47)
[2023-02-06 20:45] VITALS: BP 142/68; TEMP 97.2; O2SAT 99
== END 2023-02-06 21:46 | disposition home or self-care (01) ==
LOC: M SDC 12:29
PROVIDERS: ATTEND Obstetrics & Gynecology
DX: N99.3 Prolapse of vaginal vault after hysterectomy (principal); N81.10 Cystocele, unspecified; E03.9 Hypothyroidism, unspecified; Z85.3 Personal history of malignant neoplasm of breast; Z92.21 Personal history of antineoplastic chemotherapy; Z79.899 Other long term (current) drug therapy; K21.9 Gastro-esophageal reflux disease without esophagitis; J30.2 Other seasonal allergic rhinitis; Z88.0 Allergy status to penicillin; Z98.84 Bariatric surgery status
CPT/HCPCS: 36415; 57240; 57282; 80048; 85027; 86850; 86900; 86901; C1713; J0131; J0690; J1100; J1885; J2250; J2405; J2598; J2765; J3010

== ENCOUNTER → 2023-03-12 | Outpatient (CLI) | payer OTHER ==
[~2023-03-12] MED LIST changes: -ceFAZolin SOD 2 GM in IV 1 EA IV ONE
== END ==
LOC: M WHC 13:06
PROVIDERS: ATTEND Nurse Practitioner Women's Health
DX: D05.12 Intraductal carcinoma in situ of left breast (principal); Z90.12 Acquired absence of left breast and nipple
CPT/HCPCS: 77065; G0279

== ENCOUNTER → 2023-05-03 | Outpatient (CLI) | payer OTHER | LOC: M RAD 14:01 | PROVIDERS: ATTEND Nurse Practitioner Adult Health | DX: J06.9 Acute upper respiratory infection, unspecified (principal); R91.8 Other nonspecific abnormal finding of lung field ==

== ENCOUNTER → 2023-11-14 | Outpatient (CLI) | payer OTHER ==
[~2023-11-14] MED LIST changes: +LETR2.5T2 PO; +OXYB5TAB14 PO; +PROHANCE 279.3MG/ML 15ML VIAL ONE; +SEMA1PEN4
== END ==
LOC: M PLAIMG 07:47
PROVIDERS: ATTEND Nurse Practitioner Women's Health
DX: D05.12 Intraductal carcinoma in situ of left breast (principal); N60.99 Unspecified benign mammary dysplasia of unspecified breast; Z85.3 Personal history of malignant neoplasm of breast; Z90.12 Acquired absence of left breast and nipple; Z98.82 Breast implant status
CPT/HCPCS: A9576; C8908

== ENCOUNTER → 2024-03-16 | Outpatient (CLI) | payer OTHER ==
[~2024-03-16] MED LIST changes: -PROHANCE 279.3MG/ML 15ML VIAL ONE
== END ==
LOC: M WHC 13:04
PROVIDERS: ATTEND Nurse Practitioner
DX: Z12.31 Encounter for screening mammogram for malignant neoplasm of breast (principal); Z85.3 Personal history of malignant neoplasm of breast
CPT/HCPCS: 77065; G0279

== ENCOUNTER 2024-03-31 06:00 | Day surgery (SDC) | payer OTHER ==
[~2024-03-31] VITALS: Ht 165.1 cm; Wt 70.6 kg
[2024-03-31] MEDS ORDERED: LR 1,000 ML IV SCH (06:10)
[2024-03-31] MEDS: ceFAZolin 1GM VIAL As Ordered ONE (07:18)
[2024-03-31] MEDS: CLINDAMYCIN 900 MG in IV 1 EA IV ONE (07:54)
[2024-03-31] MEDS: HEPARIN SOD (PORCINE) 5000UNITS/ML 1ML VIAL/SYRINGE SQ ONE (07:56)
[2024-03-31] MEDS ORDERED: MIDAZOLAM INJ 2MG/2ML VIAL As Ordered ONE (08:00)
[2024-03-31] MEDS ORDERED: fentaNYL 100 MCG/2 ML INJECTION As Ordered ONE (08:00)
[2024-03-31] MEDS ORDERED: HYDROmorphone HCL 2MG/ML 1ML VIAL As Ordered ONE (08:00)
[2024-03-31] MEDS ORDERED: ONDANSETRON 4MG 2ML VIAL As Ordered ONE (08:00)
[2024-03-31] MEDS ORDERED: SUGAMMADEX SODIUM 500 MG/5 ML VIAL (BRIDION) As Ordered ONE (08:00)
[2024-03-31] MEDS ORDERED: propofoL 200 MG/20 ML VIAL As Ordered ONE (08:00)
[2024-03-31] MEDS ORDERED: dexmedeTOMIDine (4MCG/ML)200MCG/50ML BTL (PRECEDEX) As Ordered ONE (08:00)
[2024-03-31] MEDS ORDERED: ACETAMINOPHEN 1000MG 100ML IV BAG As Ordered ONE (08:00)
[2024-03-31] MEDS ORDERED: ROCURONIUM BROMIDE 50MG/5ML VIAL As Ordered ONE (08:00)
[2024-03-31] MEDS ORDERED: LIDOCAINE 2% 100MG/5ML SDV (FOR ANES.) As Ordered ONE (08:00)
[2024-03-31] MEDS: GENTAMICIN SULF 80MG/2ML VIAL As Ordered ONE (08:39)
[2024-03-31] MEDS: EPINEPHrine INJ 1 MG/ML 1ML AMP As Ordered ONE (08:41)
[2024-03-31] MEDS: LIDOCAINE 1% MDV 20ML VIAL As Ordered ONE (08:41)
[2024-03-31] MEDS ORDERED: CIPR-249 PO (10:13)
[2024-03-31] MEDS ORDERED: HYDROMORPHONE HCL 0.5 MG/ 0.5 ML SYRINGE IV PRN (10:35)
[2024-03-31] MEDS ORDERED: oxyCODONE 5MG TAB PO PRN (10:35)
[2024-03-31] MEDS ORDERED: METOCLOPRAMIDE INJ 10MG/2ML VIAL IV PRN (10:35)
[2024-03-31] MEDS ORDERED: fentaNYL 100 MCG/2 ML INJECTION IV PRN (10:35)
[2024-03-31] MEDS ORDERED: ONDANSETRON 4MG 2ML VIAL IV PRN (10:35)
[2024-03-31] MEDS ORDERED: diphenhydrAMINE 50MG/ML VIAL IV PRN (10:35)
[2024-03-31] MEDS ORDERED: MEPERIDINE 25 MG/ML 1ML VIAL IV PRN (10:35)
[2024-03-31 12:18] VITALS: BP 139/66; TEMP 96.8; O2SAT 100
== END 2024-03-31 12:36 | disposition home or self-care (01) ==
LOC: M SDC 06:00
PROVIDERS: ATTEND Plastic Surgery Surgery of the Hand
DX: N65.1 Disproportion of reconstructed breast (principal); Z85.3 Personal history of malignant neoplasm of breast; C50.912 Malignant neoplasm of unspecified site of left female breast; Z79.899 Other long term (current) drug therapy; Z98.84 Bariatric surgery status; Z87.891 Personal history of nicotine dependence; Z92.21 Personal history of antineoplastic chemotherapy; K21.9 Gastro-esophageal reflux disease without esophagitis; M81.0 Age-related osteoporosis without current pathological fracture; E03.9 Hypothyroidism, unspecified
CPT/HCPCS: 15771; 15772; 19325; 88302; C9290; J0131; J0171; J0665; J0737; J1100; J1170; J1580; J2250; J2405; J3010; L8600

== ENCOUNTER → 2024-10-13 | Outpatient (CLI) | payer OTHER ==
[~2024-10-13] MED LIST changes: +CIPR-249 PO; +GABA-1172 PO; -GABA-282 PO
== END ==
LOC: M WHC 12:22
PROVIDERS: ATTEND Surgery
DX: N63.21 Unspecified lump in the left breast, upper outer quadrant (principal)

== ENCOUNTER → 2024-11-12 | Outpatient (CLI) | payer OTHER ==
[~2024-11-12] MED LIST changes: -PHEN-239; -PHEN-239 PO; +PHEN37.511; +PHEN37.511 PO; +PROHANCE 279.3MG/ML 15ML VIAL ONE
== END ==
LOC: M PLAIMG 08:20
PROVIDERS: ATTEND Surgery
DX: D05.12 Intraductal carcinoma in situ of left breast (principal); N63.21 Unspecified lump in the left breast, upper outer quadrant; Z90.12 Acquired absence of left breast and nipple; Z98.82 Breast implant status
CPT/HCPCS: A9576; C8908

== ENCOUNTER → 2024-11-24 | Outpatient (CLI) | payer OTHER ==
[~2024-11-24] MED LIST changes: -PROHANCE 279.3MG/ML 15ML VIAL ONE
== END ==
LOC: M WHC 10:23
PROVIDERS: ATTEND Internal Medicine Medical Oncology
DX: M85.88 Other specified disorders of bone density and structure, other site (principal); M85.851 Other specified disorders of bone density and structure, right thigh; M85.852 Other specified disorders of bone density and structure, left thigh; C50.912 Malignant neoplasm of unspecified site of left female breast; Z13.820 Encounter for screening for osteoporosis

== ENCOUNTER → 2025-03-19 | Outpatient (CLI) | payer OTHER ==
[~2025-03-19] MED LIST changes: -PERM5CRE9; +PERM60CR2; +SEMA2.4P
== END ==
LOC: M WHC 08:04
PROVIDERS: ATTEND Surgery
DX: D05.12 Intraductal carcinoma in situ of left breast (principal); R92.323 Mammographic fibroglandular density, bilateral breasts

== ENCOUNTER → 2025-03-23 | Outpatient (CLI) | payer OTHER ==
[2025-03-23 16:05] LABS: BASO # 0.1 10^3/uL (0.0-0.2); BASO % 1.0 % (0.0-1.0); EOS # 0.1 10^3/uL (0.0-0.5); EOS % 2.0 % (0.0-3.0); LYMPH # 1.5 10^3/uL (1.5-5.0); LYMPH % 30.5 % (24.0-44.0); MONO # 0.4 10^3/uL (0.0-0.8); MONO % 7.8 % (2.0-8.0); NEUTROPHILS # 2.9 10^3/uL (1.5-8.5); NEUTROPHILS % 58.5 % (36.0-66.0); PLATELET COUNT, AUTOMATED 273 10^3/uL (150-450)
[2025-03-23 16:40] LABS: FREE T4 1.28 NG/DL (0.89-1.76)
[2025-03-23 17:17] LABS: ALT/SGPT 26 U/L (7.0-40); AST/SGOT 26 U/L (<34); CALCIUM LEVEL 9.5 MG/DL (8.5-10.1); CARBON DIOXIDE LEVEL 28 MMOL/L (20-31); CHLORIDE LEVEL 104 MMOL/L (98-107); CREATININE FOR GFR 0.73 MG/DL (0.55-1.30); GLOMERULAR FILTRATION RATE > 90.0 (>51); POTASSIUM SERUM 4.2 MMOL/L (3.5-5.1); SODIUM LEVEL 138 MMOL/L (136-145)
== END ==
LOC: M EKG 14:47
DX: Z01.810 Encounter for preprocedural cardiovascular examination (principal); R00.0 Tachycardia, unspecified; R94.31 Abnormal electrocardiogram [ECG] [EKG]

== ENCOUNTER 2025-04-06 08:54 | Observation (INO) | payer OTHER ==
[~2025-04-06] VITALS: Ht 165.1 cm; Wt 70.7 kg
[~2025-04-06 08:54] MED LIST changes: -SEMA2.4P; +SEMA2.4P INJ
[2025-04-06] MEDS: LR 1,000 ML IV SCH ×3 (10:27→15:25)
[2025-04-06] MEDS: SCOPOLAMINE 1MG TRANSDERMAL PATCH TOP ONE (10:32)
[2025-04-06] MEDS ORDERED: dexAMETHasone 4 MG/ML 1 ML VIAL As Ordered ONE (10:49)
[2025-04-06] MEDS ORDERED: LIDOCAINE 2% 100 MG/5 ML SDV (FOR ANES.) As Ordered ONE (10:49)
[2025-04-06] MEDS ORDERED: ONDANSETRON 4MG 2ML VIAL As Ordered ONE (10:49)
[2025-04-06] MEDS ORDERED: MIDAZOLAM INJ 2 MG/2 ML VIAL As Ordered ONE (10:49)
[2025-04-06] MEDS ORDERED: ROCURONIUM BROMIDE 50MG/5ML VIAL As Ordered ONE (10:49)
[2025-04-06] MEDS ORDERED: dexmedeTOMIDine (4 MCG/ML) 200 MCG/50 ML BTL As Ordered ONE (10:50)
[2025-04-06] MEDS: HEPARIN SOD 5000 UNITS/ML 1 ML VIAL/SYRINGE SQ ONE (11:46)
[2025-04-06] MEDS: ceFAZolin SOD 2 GM IV ONCE IV ONE (11:53)
[2025-04-06] MEDS ORDERED: LACRILUBE (AKWA TEARS) OPHTH OINT 3.5 GM As Ordered ONE (12:10)
[2025-04-06] MEDS: GENTAMICIN SULF 80 MG/2 ML VIAL As Ordered ONE (12:21)
[2025-04-06] MEDS ORDERED: ACETAMINOPHEN 1000MG/100ML IV BAG As Ordered ONE (12:52)
[2025-04-06] MEDS ORDERED: SUGAMMADEX SODIUM 200 MG/2 ML VIAL As Ordered ONE (12:59)
[2025-04-06] MEDS ORDERED: HYDROmorphone HCL 2 MG/ML 1 ML VIAL As Ordered ONE (13:04)
[2025-04-06] MEDS ORDERED: HYDROMORPHONE HCL 0.5 MG/0.5 ML SYRINGE IV PRN (14:40)
[2025-04-06] MEDS ORDERED: ONDANSETRON 4MG 2ML VIAL IV PRN ×2 (14:40→15:25)
[2025-04-06] MEDS ORDERED: ACETAMINOPHEN 325 MG TAB PO PRN (15:25)
[2025-04-06 16:10] VITALS: BP 128/76; TEMP 97.8; O2SAT 96
[2025-04-06 16:40] VITALS: BP 137/70; TEMP 97.7; O2SAT 94
[2025-04-06 17:10] VITALS: BP 123/68; TEMP 97.7; O2SAT 97
[2025-04-06] MEDS: PERCOCET 5MG/325MG TAB PO PRN (17:47)
[2025-04-06 18:10] VITALS: BP 124/66; TEMP 97.5; O2SAT 97
[2025-04-06] MEDS ORDERED: HOME MED LIST COMPLETE! XX SCH (18:20)
[2025-04-06 19:10] VITALS: BP 128/68; TEMP 97.7; O2SAT 96
[2025-04-06 19:49] VITALS: BP 116/70; TEMP 97.3; O2SAT 96
[2025-04-06] MEDS: ceFAZolin SODIUM 2 GM in DEXTROSE 5% (D5W) ADV/MINI-BAG 50 ML IV SCH (20:35)
[2025-04-07 00:05] VITALS: BP 116/62; TEMP 97.5; O2SAT 93
[2025-04-07 04:00] VITALS: BP 110/59; TEMP 97; O2SAT 96
[2025-04-07] MEDS: LEVOTHYROXINE 50 MCG TABLET (0.05 MG) PO SCH (06:13)
[2025-04-07 07:39] VITALS: BP 114/57; TEMP 98.1; O2SAT 97
[2025-04-07] MEDS: OMEPRAZOLE 20MG CAP PO SCH (07:58)
[2025-04-07] MEDS: CETIRIZINE 5 MG/5 ML UDC DYE FREE PO SCH (07:59)
[2025-04-07] MEDS: VITAMIN D 1,000 INTERNATIONAL UNITS TABLET PO SCH (07:59)
[2025-04-07] MEDS ORDERED: PERCOCET PO (11:35)
[2025-04-07] MEDS: traMADol 50 MG TAB PO PRN (12:15)
[2025-04-07 12:19] VITALS: BP 114/58; TEMP 97.7; O2SAT 98
== END 2025-04-07 15:55 | disposition home or self-care (01) ==
LOC: M SDC 08:54 → M MS5PR 08:55
PROVIDERS: ADMIT Plastic Surgery Surgery of the Hand; ATTEND Plastic Surgery Surgery of the Hand
DX: M54.07 Panniculitis affecting regions of neck and back, lumbosacral region (principal); L30.4 Erythema intertrigo; E03.9 Hypothyroidism, unspecified; K21.9 Gastro-esophageal reflux disease without esophagitis; Z85.3 Personal history of malignant neoplasm of breast; Z92.21 Personal history of antineoplastic chemotherapy; Z79.899 Other long term (current) drug therapy; Z98.84 Bariatric surgery status; J30.2 Other seasonal allergic rhinitis; Z88.0 Allergy status to penicillin
CPT/HCPCS: 15830; 15847; 88300; 96365; 96366; J0131; J0665; J0666; J0688; J1100; J1171; J1580; J2250; J2405; J3010

== ENCOUNTER → 2025-04-25 | Outpatient (REF) | payer OTHER ==
[2025-04-25 18:11] LABS: APPEARANCE, URINE CLOUDY (CLEAR); BACTERIA, URINE AUTO 1+ (NEGATIVE); BILIRUBIN, URINE AUTO NEGATIVE (NEGATIVE); BLOOD, URINE BLOOD 2+ (NEGATIVE); GLUCOSE, URINE (UA) AUTO NEGATIVE (NEGATIVE); KETONE, URINE AUTO TRACE mg/dL (NEGATIVE); LEUKOCYTE ESTERASE, URINE AUTO 2+ (NEGATIVE); MUCUS, URINE LARGE (NEGATIVE); NITRITE, URINE AUTO POSITIVE (NEGATIVE); PROTEIN, URINE AUTO 2+ mg/dL (NEGATIVE); RBC, URINE AUTO 34 /HPF (0-3); SPECIFIC GRAVITY URINE AUTO 1.027 (1.002-1.035); SQUAMOUS EPITHELIAL CELL UR AU 3 /HPF (0-6); UROBILINOGEN, URINE AUTO 0.2 mg/dL (0.0-2.0); WBC, URINE AUTO 174 /HPF (0-3)
== END ==
LOC: M LAB REF 17:32
PROVIDERS: ATTEND Physician Assistant Medical
DX: N39.0 Urinary tract infection, site not specified (principal)